=== PATIENT | male | born 1955 | race Caucasian/White ===

== ENCOUNTER 2022-02-02 17:49 | Inpatient (IN) | payer MEDICARE, MEDICAID ==
[~2022-02-02] VITALS: Ht 152.4 cm; Wt 40.4 kg
--- NOTE | 2022-02-02 18:46 | NUR ---
aj Chapa md aware
[2022-02-02] MEDS ORDERED: IV NS 0.9% 1,000 ML BAG IV ONE (19:00)
--- NOTE | 2022-02-02 19:00 | NUR ---
IV LINE ON LAC #20, BLOOD DRAWN AND COLLECTED.
--- NOTE | 2022-02-02 19:09 | NUR ---
URINE COLLECTED AND SENT TO LAB
[2022-02-02 19:52] LABS: ALANINE AMINOTRANSFERASE 138 U/L (12-78); ALBUMIN 3.4 g/dL (3.4-5.0); ALKALINE PHOSPHATASE 117 U/L (46-116); ASPARTATE AMINOTRANSFERASE 95 U/L (15-37); BILIRUBIN,DIRECT 0.1 mg/dL (0.0-0.2); BILIRUBIN,TOTAL 0.2 mg/dL (0.2-1.0); CALCIUM, SERUM 10.3 mg/dL (8.5-10.1); CARBON DIOXIDE 30 mmol/L (21-32); CHLORIDE 97 mmol/L (98-107); CREATININE 0.7 mg/dL (0.6-1.3); POTASSIUM 4.5 mmol/L (3.5-5.1); SODIUM SERUM 129 mmol/L (136-145); TOTAL PROTEIN, SERUM 6.3 g/dL (6.4-8.2); UREA NITROGEN, BLOOD 19 mg/dL (7-18)
[2022-02-02 19:57] LABS: GLUCOSE 384 mg/dL (74-106)
[2022-02-02 20:04] LABS: BASOPHILS % (AUTO) 0.4 % (0.0-2.0); EOSINOPHILS % (AUTO) 2.2 % (0.0-6.0); HEMATOCRIT 35 % (39-51); HEMOGLOBIN 12.4 g/dL (13.5-17.5); LYMPHOCYTES # (AUTO) 1.2 K/uL (0.8-4.8); MEAN CORPUSCULAR HGB CONC 35 g/dl (31.0-36.0); MEAN CORPUSCULAR VOLUME 102 fL (80-96); MONOCYTES # (AUTO) 0.5 K/uL (0.1-1.30); MONOCYTES % (AUTO) 8.9 % (2.0-12.0); NEUTROPHILS # (AUTO) 3.5 K/uL (1.8-8.9); NEUTROPHILS % (AUTO) 66.5 % (43.0-81.0); PLATELET COUNT (AUTO) 249 K/uL (150-450); RED BLOOD CELL COUNT(AUTO) 3.43 MIL/uL (4.5-6.0); WHITE BLOOD COUNT (AUTO) 5.3 K/uL (4.3-11.0)
[2022-02-02 20:05] LABS: BILIRUBIN,URINE NEGATIVE (NEGATIVE); COLOR,URINE YELLOW (YELLOW); LEUKOCYTE ESTERASE ,URINE NEGATIVE (NEGATIVE); NITRITE, URINE NEGATIVE (NEGATIVE); PROTEIN,URINE NEGATIVE (NEGATIVE); UGLUCOSE 3+ mg/dL (NEGATIVE); UROBILINOGEN,URINE 0.2 EU/dL (0.2)
--- NOTE | 2022-02-02 20:10 | NUR ---
COVID ANTIGEN SWAB COLLECTED AND SENT TO LAB
[2022-02-02 20:29] LABS: BACTERIA,URINE Few /HPF (None Seen); RED BLOOD CELL CASTS,URINE Few /LPF (None Seen)
[2022-02-02] MEDS ORDERED: INSULIN REGULAR, HUMAN 100 UNIT/ML 10 ML VIAL SQ ONE (20:30)
[2022-02-02] MEDS ORDERED: INSULIN REGULAR, HUMAN 100 UNIT/ML 10 ML VIAL ONE (20:36)
--- NOTE | 2022-02-02 20:49 | NUR ---
GUN PERFORATOR AT PT'S BEDSIDE
[2022-02-02 21:15] LABS: LIPASE 206 U/L (73-393)
--- NOTE | 2022-02-02 21:35 | NUR ---
OFFERED PT FOOD; TOLERATED WELL
[2022-02-02] MEDS ORDERED: DEXTROSE 50%-WATER 50 ML DISP.SYRIN IV PRN (22:30)
[2022-02-03] MEDS ORDERED: ACETAMINOPHEN 325 MG TABLET PO PRN (01:00)
[2022-02-03] MEDS: ENOXAPARIN SODIUM 40 MG/0.4 ML DISP.SYRIN SQ SCH ×2 (01:00→21:29)
[2022-02-03] MEDS ORDERED: ONDANSETRON HCL/PF 4 MG/2 ML VIAL IVP PRN (01:00)
--- NOTE | 2022-02-03 01:00 | NUR ---
SALES CONSULTING DIRECTORPHYSICAL THERAPY INSTRUCTOR NOTE PT TRANSPORTED VIA GURNEY TO UNIT AT THIS TIME. PT FROM [facility] ADMITTED TO TELE FROM ER UNDER DRUM PRINTER JAZMÍN FOR ADMITTING DX HYPERGLYCEMIA. A/O X2 AND ABLE TO MAKE NEEDS KNOWN. PT STABLE ON ROOM AIR. NO SOB OR S/S OF RESPIRATORY DISTRESS. BREATHING EVEN AND UNLABORED. ON EXTERNAL AN/SSN 2 4 OPERATOR READING SR 61 BPM. NO COMPLAINTS OF PAIN OR DISCOMFORT AT THIS TIME. SKIN IS INTACT. IV ACCESS LAC 20G, INTACT AND PATENT. ORIENTED TO UNIT, STAFF, AND ROOM. PT BELONGINGS ACCOUNTED FOR AND BELONGINGS LIST SIGNED. SAFETY PRECAUTIONS IN PLACE. BED IN LOWEST LOCKED POSITION, HOB ELEVATED, SIDE RAILS UP X3, AND CALL LIGHT AND TABLE WITHIN REACH. ALL NEEDS MET AT THIS TIME.
[2022-02-03 01:15] VITALS: BP 106/59
--- NOTE | 2022-02-03 01:26 | NUR ---
JAZMÍN AT PT'S BEDSIDE FOR EVAL
[2022-02-03] MEDS: IV NS 0.9% 1,000 ML IV PRN ×2 (01:31→15:07)
--- NOTE | 2022-02-03 01:41 | NUR ---
REPORT GIVEN TO TOBI Brannon RN FOR MARIE
--- NOTE | 2022-02-03 01:56 | NUR ---
PT TRANSFERRING TO 3 VIA HOSPITAL PROTOCOL. VSS.
[2022-02-03 04:00] VITALS: BP 104/49
[2022-02-03] MEDS: BLOOD SUGAR DIAGNOSTIC 1 EACH STRIP VI SCH ×4 (06:30→22:00)
[2022-02-03] MEDS: INSULIN REGULAR, HUMAN 100 UNIT/ML 3 ML VIAL SQ PRN ×2 (06:32→13:11)
--- NOTE | 2022-02-03 06:53 | NUR ---
COLLECTION ADVISOR CLOSING NOTE PT AWAKE IN BED. A/O X2 AND ABLE TO MAKE NEEDS KNOWN. PT STABLE ON ROOM AIR. NO SOB OR S/S OF RESPIRATORY DISTRESS. BREATHING EVEN AND UNLABORED. ON EXTERNAL CARBIDE POWDER PROCESSOR READING SR 61 BPM. NO COMPLAINTS OF PAIN OR DISCOMFORT AT THIS TIME. IV ACCESS LAC 20G, INTACT AND PATENT, RUNNING NS @ 75 ML/HR. PT REFUSED INSULIN THIS MORNING SINCE BLOOD SUGAR WAS 131. EXPLAINED IMPORTANCE OF MEDICATION COMPLIANCE, PT VERBALIZED UNDERSTANDING BUT STILL REFUSED. SAFETY PRECAUTIONS IN PLACE AT ALL TIMES. BED IN LOWEST LOCKED POSITION, HOB ELEVATED, SIDE RAILS UP X3, AND CALL LIGHT AND TABLE WITHIN REACH. ALL NEEDS MET AT THIS TIME AND WILL ENDORSE TO ONCOMING NURSE FOR MARIE.
--- NOTE | 2022-02-03 07:00 | NUR ---
PSYCHIATRIST OPENING NOTES PATIENT LAYING IN BED, A/O X 2, ABLE TO MAKE NEEDS KNOWN. TOLERATING WELL ON ROOM AIR WITH NO S/S RESPIRATORY DISTRESS. NO COMPLAINTS OF PAIN OR DISCOMFORT AT THIS TIME. TELE MONITOR IN PLACE READING NSR 78. L AC # 20 G IV CLEAN, INTACT, AND INFUSING NS @ 75 ML/HR. SAFETY MEASURES IN PLACE: BED IN LOWEST LOCKED POSITION, SIDE RAILS UP X 2, CALL LIGHT WITHIN REACH. WILL CONTINUE TO MONITOR.
[2022-02-03 08:00] VITALS: BP 139/87
[2022-02-03] MEDS: METFORMIN 500 MG TABLET PO SCH ×2 (10:33→17:00)
[2022-02-03 12:00] VITALS: BP 99/80
--- NOTE | 2022-02-03 13:17 | NUR ---
PARTS PRODUCT ANALYST NOTES PATIENT NOTED WITH BLOOD GLUCOSE 428 (PATIENT HAD EATEN), NO S/S HYPERGLYCEMIA NOTED, MD MADE AWARE, 15 UNITS INSULIN SLIDING SCALE ADMINISTERED ORDERED.
[2022-02-03 16:00] VITALS: BP 142/78
[2022-02-03 16:34] LABS: BASOPHILS % (AUTO) 0.6 % (0.0-2.0); EOSINOPHILS % (AUTO) 1.7 % (0.0-6.0); HEMATOCRIT 39 % (39-51); LYMPHOCYTES # (AUTO) 1.5 K/uL (0.8-4.8); LYMPHOCYTES % (AUTO) 20.8 % (20.0-44.0); MEAN CORPUSCULAR HGB CONC 33 g/dl (31.0-36.0); MEAN CORPUSCULAR VOLUME 96 fL (80-96); MONOCYTES # (AUTO) 0.6 K/uL (0.1-1.30); MONOCYTES % (AUTO) 8.1 % (2.0-12.0); NEUTROPHILS # (AUTO) 4.9 K/uL (1.8-8.9); NEUTROPHILS % (AUTO) 68.8 % (43.0-81.0); PLATELET COUNT (AUTO) 293 K/uL (150-450); RED BLOOD CELL COUNT(AUTO) 4.03 MIL/uL (4.5-6.0); WHITE BLOOD COUNT (AUTO) 7.1 K/uL (4.3-11.0)
--- NOTE | 2022-02-03 16:44 | NUR ---
SLUBBER MACHINE OPERATOR NOTES PATIENT ACCUCHECK 52, PATIENT GIVEN 8 OZ ORANGE JUICE PER PROTOCOL. MD MADE AWARE.
[2022-02-03 16:48] LABS: ALBUMIN 3.4 g/dL (3.4-5.0); BILIRUBIN,DIRECT 0.1 mg/dL (0.0-0.2); BILIRUBIN,TOTAL 0.3 mg/dL (0.2-1.0); CALCIUM, SERUM 10.4 mg/dL (8.5-10.1); CREATININE 0.8 mg/dL (0.6-1.3); MAGNESIUM 1.6 mg/dL (1.8-2.4); PHOSPHORUS 1.5 mg/dL (2.5-4.9); POTASSIUM 3.9 mmol/L (3.5-5.1); TOTAL PROTEIN, SERUM 6.5 g/dL (6.4-8.2)
--- NOTE | 2022-02-03 17:21 | NUR ---
MEDICAL RECORDS SPECIALIST NOTES PATIENT AGITATED, REFUSING MEDICATION AND TELE MONITORING AT THIS TIME
--- NOTE | 2022-02-03 19:00 | NUR ---
SONG WRITER CLOSING NOTES PATIENT LAYING IN BED, A/O X 2, ABLE TO MAKE NEEDS KNOWN. TOLERATING WELL ON ROOM AIR WITH NO S/S RESPIRATORY DISTRESS. NO COMPLAINTS OF PAIN OR DISCOMFORT AT THIS TIME. PATIENT REFUSING TELE MONITORING AT THIS TIME. L AC # 20 G IV CLEAN, INTACT, AND INFUSING NS @ 75 ML/HR. SAFETY MEASURES IN PLACE: BED IN LOWEST LOCKED POSITION, SIDE RAILS UP X 2, CALL LIGHT WITHIN REACH. ALL NEEDS MET. WILL ENDORSE TO ENGRAVER SEALS FOR MARIE.
[2022-02-03 20:00] VITALS: BP 153/82
--- NOTE | 2022-02-03 21:53 | NUR ---
QUALITY ASSURANCE ASSISTANT OPENING NOTES RECEIVED PATIENT LYING AWAKE IN BED, A/O X 2, ABLE TO MAKE NEEDS KNOWN. TOLERATING WELL ON ROOM AIR WITH NO S/S RESPIRATORY DISTRESS. NO COMPLAINTS OF PAIN OR DISCOMFORT AT THIS TIME. PATIENT REFUSING TELE MONITORING AND VITAL SIGNS TAKING AT THIS TIME. L AC # 20 G IV CLEAN, INTACT, AND INFUSING NS @ 75 ML/HR. SAFETY MEASURES IN PLACE: BED IN LOWEST LOCKED POSITION, SIDE RAILS UP X 2, CALL LIGHT WITHIN REACH. WILL CONTINUE TO MONITOR THROUGHOUT THE SHIFT.
--- NOTE | 2022-02-03 22:30 | NUR ---
PATIENT REFUSED BLOOD GLUCOSE MONITORING THIS TIME.
--- NOTE | 2022-02-03 23:14 | NUR ---
RN NOTE BLOOD SUGAR: 263mg/dl. With insulin coverage, 6 units sliding scale. Patient refused insulin admin. Reinforced need for insulin to lower blood sugar level. Patient insisted (shouting) to be given tomorrow morning.
[2022-02-04] MEDS: BENZONATATE 100 MG CAPSULE PO PRN ×4 (02:46→22:40)
--- NOTE | 2022-02-04 02:48 | NUR ---
PATIENT COMPLAINED OF NON PRODUCTIVE COUGH. VERBALIZED DIFFICULTY BREATHING. UNCOMFORTABLE DUE TO COUGH. INFORMED DR. NOYOLA AND ORDERED TESSALON 100MG FOR COUGH. WILL MONITOR PATIENT THROUGHOUT.
[2022-02-04] MEDS: POLYVINYL ALCOHOL 15 ML BOTTLE EACHEYE PRN ×3 (05:24→16:04)
--- NOTE | 2022-02-04 06:52 | NUR ---
LEATHER REPAIRER CLOSING NOTES PATIENT LYING AWAKE IN BED, A/O X 2, ABLE TO MAKE NEEDS KNOWN. TOLERATING WELL ON ROOM AIR WITH NO S/S RESPIRATORY DISTRESS. NO COMPLAINTS OF PAIN OR DISCOMFORT AT THIS TIME. PATIENT REFUSING TELE MONITORING AT THIS TIME. IV ACCESS AT L AC # 20 G IV CLEAN, INTACT, AND INFUSING NS @ 75 ML/HR. SAFETY MEASURES IN PLACE: BED IN LOWEST LOCKED POSITION, SIDE RAILS UP X 2, CALL LIGHT WITHIN REACH. ALL NEEDS MET. WILL ENDORSE TO DAY SHIFT RN FOR MARIE.
[2022-02-04] MEDS: BLOOD SUGAR DIAGNOSTIC 1 EACH STRIP VI SCH ×4 (06:58→21:58)
[2022-02-04] MEDS: INSULIN REGULAR, HUMAN 100 UNIT/ML 3 ML VIAL SQ PRN ×3 (06:59→16:56)
--- NOTE | 2022-02-04 07:20 | NUR ---
CONTINUOUS PROCESS COFFEE ROASTER OPENING NOTES RECEIVED PATIENT LYING AWAKE IN BED, A/O X 2, ABLE TO MAKE NEEDS KNOWN. TOLERATING WELL ON ROOM AIR .NO S/S RESPIRATORY DISTRESS NOTED. NO COMPLAINTS OF PAIN OR DISCOMFORT AT THIS TIME. PATIENT REFUSING TELE MONITORING AT THIS TIME. EDUCATE THE PATIENT ABOUT THE IMPORTANCE OF THE HYDROTECHNICAL SPECIALIST BUT STILL REFUSING. L AC # 20 G IV, INTACT, AND INFUSING NS @ 75 ML/HR. ALL SAFETY MEASURES IN PLACE: BED IN LOWEST LOCKED POSITION, SIDE RAILS UP X 2, CALL LIGHT AND TABLE WITHIN REACH. WILL CONTINUE TO MONITOR CLOSELY.
[2022-02-04 08:00] VITALS: BP 129/87
[2022-02-04] MEDS: METFORMIN 500 MG TABLET PO SCH ×2 (08:04→16:10)
[2022-02-04] MEDS ORDERED: METF-440 PO (08:45)
[2022-02-04] MEDS ORDERED: EMPA25TA PO ×2 (08:45→09:56)
[2022-02-04] MEDS ORDERED: *INS REG SQ (08:45)
[2022-02-04] MEDS: INSULIN GLARGINE, 100 UNIT/ML CARTRIDGE SQ SCH ×2 (09:00→17:00)
[2022-02-04] MEDS ORDERED: INSU100V3 SQ (09:56)
[2022-02-04] MEDS ORDERED: METO25TA4 PO (09:56)
[2022-02-04] MEDS ORDERED: MUPI22OI7 TP (09:56)
[2022-02-04] MEDS ORDERED: METF-442 PO (09:56)
[2022-02-04] MEDS ORDERED: AMLO-212 PO (09:56)
[2022-02-04] MEDS ORDERED: LISI20TA30 PO (09:56)
[2022-02-04] MEDS ORDERED: APIX2.5T PO (09:56)
[2022-02-04] MEDS ORDERED: OXCA600T8 PO (09:56)
[2022-02-04] MEDS ORDERED: SENN-261 PO (09:56)
[2022-02-04] MEDS ORDERED: HALO10TA13 PO (09:56)
[2022-02-04] MEDS ORDERED: TAMS-12 PO (09:56)
[2022-02-04] MEDS ORDERED: INSU100V7 SQ (09:56)
[2022-02-04] MEDS ORDERED: PANT40TA49 PO (09:56)
[2022-02-04] MEDS ORDERED: TOBR5DRO48 EACHEYE (09:56)
[2022-02-04] MEDS ORDERED: MEMA10TA56 PO (09:56)
[2022-02-04] MEDS ORDERED: HALO100A3 IM (09:56)
--- NOTE | 2022-02-04 10:16 | NUR ---
RN NOTES PATIENT REFUSED INSULIN LANTUS FOR 0900 AM. EDUCATE AND EXPLAINED THE BENEFITS OF THE MEDICATION, BUT PATIENT STRONGLY REFUSED THAT.
[2022-02-04 12:00] VITALS: BP 147/68
--- NOTE | 2022-02-04 15:49 | NUR ---
RN NOTES IV SITE NOTED SWOLLEN AND PAINFUL PER PATIENT'S COMPLAIN. REMOVED THE IV SITE ON THE LAC G# 20. PATIENT REFUSING REINSERTION OF IV AND HYDRATION. EXPLAINED THE BENEFITS AND EDUCATE THE BENEFITS, STILL REFUSING.
[2022-02-04] MEDS: OXCARBAZEPINE 150 MG TABLET PO SCH (16:10)
[2022-02-04] MEDS: HALOPERIDOL 5 MG TABLET PO SCH (16:10)
[2022-02-04 16:50] VITALS: BP 121/61
--- NOTE | 2022-02-04 17:25 | NUR ---
RN NOTES PATIENT IS REFUSING LANTUS FOR 1700. OFFERED AND EDUCATE THE PATIENT ABOUT THE BENEFITS AND USE OF MEDICATION FOR BLOOD SUGAR CONTROL, BUT STILL REFUSING. RESPECTED PATIENT RIGHTS.
[2022-02-04] MEDS: GLUCERNA SHAKE 237 ML CAN PO SCH (17:39)
--- NOTE | 2022-02-04 19:49 | NUR ---
RN OPENING NOTES RECEIVED PT IN BED, ASLEEP, AWAKENS TO VERBAL STIMULI. AOx2. ON RA AND TOLERATING WELL. NO SOB NOTED. NO S/SX OF RESPIRATORY DISTRESS NOTED. IV ACCESS NOT PRESENT AND PT IS REFUSING REINSERTION. REFUSING TELE MONITOR. SAFETY PRECAUTIONS IN PLACE: BD IN LOWEST, LOCKED POSITION, SIDERAILS UPx2, AND BRAKES ON. TABLE AND CALL LIGHT WITHIN REACH. ALL NEEDS MET AT THIS TIME.
--- NOTE | 2022-02-04 19:53 | NUR ---
RN CLOSING NOTES PATIENT LYING AWAKE IN BED, A/O X 2, ABLE TO MAKE NEEDS KNOWN. TOLERATING WELL ON ROOM AIR .NO S/S RESPIRATORY DISTRESS NOTED. NO COMPLAINTS OF PAIN OR DISCOMFORT AT THIS TIME. PATIENT REFUSING TELE MONITORING AT THIS TIME. EDUCATE THE PATIENT ABOUT THE IMPORTANCE OF THE DRAFTER ASSISTANT BUT STILL REFUSING.NO IV SITE. PATIENT REFUSED 8IV SITE AND HYDRATION. DUE MEDS GIVEN ORDERED. ALL SAFETY MEASURES IN PLACE: BED IN LOWEST LOCKED POSITION, SIDE RAILS UP X 2, CALL LIGHT AND TABLE WITHIN REACH. WILL ENDORSE FOR MARIE..
[2022-02-04 20:00] VITALS: BP 127/66
[2022-02-04] MEDS: ENOXAPARIN SODIUM 40 MG/0.4 ML DISP.SYRIN SQ SCH (21:00)
[2022-02-04] MEDS: *INSULIN REGULAR(HUMULIN R)HUM 100 UNIT/ML VIAL SQ PRN ×2 (21:58→22:44)
--- NOTE | 2022-02-04 22:40 | NUR ---
RN NOTES ADMINISTERED TESSALON PERLES FOR COUGH.
[2022-02-05] MEDS: POLYVINYL ALCOHOL 15 ML BOTTLE EACHEYE PRN (05:44)
[2022-02-05] MEDS: BLOOD SUGAR DIAGNOSTIC 1 EACH STRIP VI SCH ×4 (06:34→21:14)
[2022-02-05] MEDS: INSULIN REGULAR, HUMAN 100 UNIT/ML 3 ML VIAL SQ PRN (06:35)
--- NOTE | 2022-02-05 06:53 | NUR ---
RN CLOSING NOTES PT IN BED, AWAKE, WATCHING TV. AOx2. ON RA AND TOLERATING WELL. NO SOB NOTED. NO S/SX OF RESPIRATORY DISTRESS NOTED. IV ACCESS NOT PRESENT AND PT IS REFUSING REINSERTION. REFUSING TELE MONITOR. ALL ORDERS CARRIED OUT. ALL NEEDS MET. PT KEPT CLEAN AND DRY. SAFETY PRECAUTIONS IN PLACE: BD IN LOWEST, LOCKED POSITION, SIDERAILS UPx2, AND BRAKES ON. TABLE AND CALL LIGHT WITHIN REACH. WILL ENDORSE TO ONCOMING SHIFT FOR MARIE.
[2022-02-05 07:00] VITALS: BP 119/59
--- NOTE | 2022-02-05 07:15 | NUR ---
RN OPEN NOTE RECEIVED PT IN BED, ASLEEP, AWAKENS TO VERBAL STIMULI. AOx2. ON RA AND TOLERATING WELL. NO SOB NOTED. NO S/SX OF RESPIRATORY DISTRESS NOTED. IV ACCESS NOT PRESENT AND PT IS REFUSING REINSERTION. REFUSING TELE MONITOR. SAFETY PRECAUTIONS IN PLACE: BD IN LOWEST, LOCKED POSITION, SIDERAILS UPx2, AND BRAKES ON. TABLE AND CALL LIGHT WITHIN REACH.WILL CO NTINUE TO MONITOR AND FALLOW POC
[2022-02-05] MEDS: GLUCERNA SHAKE 237 ML CAN PO SCH (08:00)
[2022-02-05] MEDS: HALOPERIDOL 5 MG TABLET PO SCH ×2 (08:07→16:55)
[2022-02-05] MEDS: METFORMIN 500 MG TABLET PO SCH ×2 (08:08→16:55)
[2022-02-05] MEDS: OXCARBAZEPINE 150 MG TABLET PO SCH ×2 (08:08→16:55)
[2022-02-05] MEDS: INSULIN GLARGINE, 100 UNIT/ML CARTRIDGE SQ SCH ×2 (08:12→16:56)
--- NOTE | 2022-02-05 11:40 | NUR ---
RN NOTE PATIENT RBS AT 1140 WAS 129 , ACCORDING TO SLIDING SCALE 2 UNITS OF REGULAR INSULIN SHOULD BE ADMINISTERED , BUT PATIENT IS REFUSED
[2022-02-05 11:50] LABS: BASOPHILS % (AUTO) 0.5 % (0.0-2.0); EOSINOPHILS % (AUTO) 1.8 % (0.0-6.0); HEMATOCRIT 37 % (39-51); HEMOGLOBIN 12.3 g/dL (13.5-17.5); LYMPHOCYTES # (AUTO) 1.3 K/uL (0.8-4.8); LYMPHOCYTES % (AUTO) 17.3 % (20.0-44.0); MEAN CORPUSCULAR HGB CONC 34 g/dl (31.0-36.0); MEAN CORPUSCULAR VOLUME 96 fL (80-96); MONOCYTES # (AUTO) 0.7 K/uL (0.1-1.30); MONOCYTES % (AUTO) 9.3 % (2.0-12.0); NEUTROPHILS # (AUTO) 5.1 K/uL (1.8-8.9); NEUTROPHILS % (AUTO) 71.1 % (43.0-81.0); PLATELET COUNT (AUTO) 293 K/uL (150-450); RED BLOOD CELL COUNT(AUTO) 3.83 MIL/uL (4.5-6.0); WHITE BLOOD COUNT (AUTO) 7.2 K/uL (4.3-11.0)
[2022-02-05 12:07] LABS: CALCIUM, SERUM 10.4 mg/dL (8.5-10.1); CREATININE 0.5 mg/dL (0.6-1.3); MAGNESIUM 1.4 mg/dL (1.8-2.4)
--- NOTE | 2022-02-05 12:14 | NUR ---
SW Consult: SW consult was notified and social work specialist will assess pt.
[2022-02-05] MEDS ORDERED: OXCA150T13 PO (13:17)
[2022-02-05] MEDS ORDERED: HALO5TAB8 PO (13:17)
--- NOTE | 2022-02-05 13:45 | NUR ---
SW Consult: SW consult was requested to evaluate this pt. SW met with patient. Patient appeared to be alert and oriented x2 (self,place). Pt appeared labile and hyperverbal. He did appear to be disorganized and somewhat confused. Pt stated that his sister Sarah ([phone]) is the conservator and payee. His speech appeared to be unclear. Pt was unable to appropriately focus. Pt was unable to maintain appropriate eye contact. Pt denies suicidal or homicidal ideation. Pt denies visual/auditory hallucinations. Pt stated that he was residing at Assisted Living located at [address] [place] [address]; ([phone]). SW contacted admissions and spoke with Yessy who stated she would have to confirm with distribution district supervisor if pt is welcomed back. REBA will follow up and REBA gave case aide Zoe this information. SW attempted to contact pt's sister Sarah ([phone]) per records indicating that pt is the conservator but no documents in the chart. Plan: Pt will either return back to Assisted Living located at [address] [place] [address]; ([phone]) or pt will require a nursing facility. REBA notified case management.
--- NOTE | 2022-02-05 15:20 | NUR ---
REBA Family Contact: REBA spoke with pt's sister Sarah ([phone]) who stated that she is the person and real estate loan officer. She stated that she has the documents of last year and it has . She stated that she renewed it this year and the documents are still pending. She did stated that when pt is stable she would want him to return back to his assisted living [address] [place] [id number]; ([phone]). She would want pt's medications to be re-evaluated and adjusted before he goes to the assisted living.
[2022-02-05] MEDS: *INSULIN REGULAR(HUMULIN R)HUM 100 UNIT/ML VIAL SQ PRN ×2 (17:09→21:14)
--- NOTE | 2022-02-05 19:04 | NUR ---
RN CLOSING NOTE PT IN BED, AWAKE, AOx2.AGITATED ON RA AND TOLERATING WELL. NO SOB NOTED. NO S/SX OF RESPIRATORY DISTRESS NOTED. IV ACCESS NOT PRESENT AND PT IS REFUSING REINSERTION. REFUSING TELE MONITOR. ALL ORDERS CARRIED OUT. ALL NEEDS MET. PT KEPT CLEAN AND DRY. SAFETY PRECAUTIONS IN PLACE: BD IN LOWEST, LOCKED POSITION, SIDERAILS UPx2, AND BRAKES ON. TABLE AND CALL LIGHT WITHIN REACH. ORDER RECEIVED TO DISCHARGE PATIENT FROM [facility] , UNDERWATER HUNTER LOOKING FOR THE ROOM , DUE TO PATIENT IS AGGITATED WILL BE TRANSFERED TO THE GPS WITH SUPERVISION OF THE DR VOSS .
--- NOTE | 2022-02-05 19:46 | NUR ---
RN OPENING NOTES RECEIVED PT SITTING UPRIGHT IN BED, AWAKE. AOx2. ON RA AND TOLERATING WELL. NO SOB NOTED. NO S/SX OF RESPIRATORY DISTRESS NOTED. IV ACCESS NOT PRESENT AND PT IS REFUSING REINSERTION. PENDING DISCHARGE TO GPS UNIT. SAFETY PRECAUTIONS IN PLACE: BD IN LOWEST, LOCKED POSITION, SIDERAILS UPx2, AND BRAKES ON. TABLE AND CALL LIGHT WITHIN REACH. ALL NEEDS MET AT THIS TIME.
[2022-02-05 20:40] VITALS: BP 134/69
[2022-02-05] MEDS: BENZONATATE 100 MG CAPSULE PO PRN (20:53)
[2022-02-05] MEDS: ENOXAPARIN SODIUM 40 MG/0.4 ML DISP.SYRIN SQ SCH (21:08)
--- NOTE | 2022-02-05 21:20 | NUR ---
DISCHARGE NOTES PATIENT DISCHARGED. REMOVED ARMBAND AND IV. PAPERWORK PROVIDED. EDUCATION PROVIDED. REPORT GIVEN TO MICHELLE RN, IN [facility]. IN PAPERWORK, SAID PATIENT WAS GOING TO SNF BUT PATIENT WAS TRANSFERRED TO [facility]. ALL BELONGINGS ACCOUNTED FOR.
[2022-02-05] MEDS ORDERED: NUT.237L45 PO (23:00)
[2022-02-05] MEDS ORDERED: POLY15DR40 EACHEYE (23:00)
[2022-02-05] MEDS ORDERED: INSU100V7 SQ (23:00)
[2022-02-05] MEDS ORDERED: HALO5TAB PO (23:00)
[2022-02-05] MEDS ORDERED: METF-442 PO (23:00)
[2022-02-05] MEDS ORDERED: *INS REG3 SQ (23:00)
[2022-02-05] MEDS ORDERED: BENZ-38 PO (23:00)
[2022-02-05] MEDS ORDERED: OXCA300T15 PO (23:00)
[2022-02-05] MEDS ORDERED: BLOO-668 (23:00)
[2022-02-05] MEDS ORDERED: ENOX40DI SQ (23:00)
== END 2022-02-05 21:20 | DRG 640 ==
LOC: ER 17:56 → TELE 02-03 01:31 → MED 02-05 10:43
PROVIDERS: ADMIT Nurse Practitioner Acute Care; ATTEND Registered Nurse
DX: E87.1 Hypo-osmolality and hyponatremia (principal); E43 Unspecified severe protein-calorie malnutrition; E86.1 Hypovolemia; E11.65 Type 2 diabetes mellitus with hyperglycemia; D53.1 Other megaloblastic anemias, not elsewhere classified; E86.0 Dehydration; E83.52 Hypercalcemia; F29 Unspecified psychosis not due to a substance or known physiological condition; I11.0 Hypertensive heart disease with heart failure; I50.9 Heart failure, unspecified; R74.01 Elevation of levels of liver transaminase levels; K76.1 Chronic passive congestion of liver; Z91.14 Patient's other noncompliance with medication regimen; Z91.199 Patient's noncompliance with other medical treatment and regimen due to unspecified reason; F03.90 Unspecified dementia, unspecified severity, without behavioral disturbance, psychotic disturbance, mood disturbance, and anxiety; F25.9 Schizoaffective disorder, unspecified
CPT/HCPCS: 36415; 71045-TC; 80048-TC; 80061-TC; 80076-TC; 81001; 82962-TC; 83690-TC; 83735-TC; 83880; 84100-TC; 84484-TC; 85025-TC; 87081-TC; C9803; G0378; J1650; J1815; J7030; J7070; J7120

== ENCOUNTER 2022-02-05 20:38 | Inpatient (IN) | payer MEDICARE, MEDICAID ==
[~2022-02-05] VITALS: Ht 152.4 cm; Wt 40.4 kg
[~2022-02-05 20:38] MED LIST: *INS REG SQ; AMLO-212 PO; APIX2.5T PO; EMPA25TA PO; HALO100A3 IM; HALO10TA13 PO; HALO5TAB8 PO; INSU100V3 SQ; INSU100V7 SQ; LISI20TA30 PO; MEMA10TA56 PO; METF-440 PO; METF-442 PO; METO25TA4 PO; MUPI22OI7 TP; OXCA150T13 PO; OXCA600T8 PO; PANT40TA49 PO; SENN-261 PO; TAMS-12 PO; TOBR5DRO48 EACHEYE
[2022-02-05 21:15] VITALS: BP 146/67
--- NOTE | 2022-02-05 21:15 | NUR ---
RN NOTE: ADMITTED A 66-Y/O, MALE, FROM [facility] INITIALLY PT CAME FROM [facility]. ADMITTED ON A 5150 HOLD FOR DTO. PER HOLD, PATIENT ADMITTED DUE TO INCREASED AGGRESSIVE BEHAVIOR TOWARDS STAFF. PATIENT IS EASILY AGITATED/ANGERED. PATIENT MAKING VERBAL THREATS. UPON FACE TO FACE EVALUATION, PATIENT IS ALERT AND ORIENTED X2, ANXIOUS, AGGRESSIVE TOWARDS STAFF AND EASILY AGITATED. SKIN ASSESSMENT DONE, SKIN IS INTACT. REFUSED TO SIGN ADMISSION PAPERWORK AND PT ALSO REFUSED TO COMMENT ABOUT FLU VACCINATION AND REFUSING TO GET ONE. NO BELONGINGS UPON ADMISSION. PATIENT'S RIGHTS WERE DISCUSSED AND BOOKLET WAS GIVEN. CONTACTED DR. VOSS AND HOSPITALIST BRIAN TAMEZ AND INFORMED THEM OF THE ADMISSION. BED IN LOWEST POSITION, LOCKED. SAFETY PRECAUTIONS MAINTAINED. WILL CONTINUE TO MONITOR Q15 MINS FOR MOOD, SAFETY AND BEHAVIOR. PATIENT'S DAUGHTER NOTIFIED OF PT'S ADMISSION.
[2022-02-05] MEDS ORDERED: BLOOD SUGAR DIAGNOSTIC 1 EACH STRIP IN ONE (22:00)
[2022-02-05] MEDS ORDERED: MAG HYDROX/AL HYDROX/SIMETH 30 ML UDC PO PRN (22:00)
[2022-02-05] MEDS ORDERED: BLOO-668 (23:00)
[2022-02-05] MEDS ORDERED: ENOX40DI SQ (23:00)
[2022-02-05] MEDS ORDERED: *INS REG3 SQ (23:00)
[2022-02-05] MEDS ORDERED: INSU100V7 SQ (23:00)
[2022-02-05] MEDS ORDERED: HALO5TAB PO (23:00)
[2022-02-05] MEDS ORDERED: POLY15DR40 EACHEYE (23:00)
[2022-02-05] MEDS ORDERED: NUT.237L45 PO (23:00)
[2022-02-05] MEDS ORDERED: METF-442 PO (23:00)
[2022-02-05] MEDS ORDERED: OXCA300T15 PO (23:00)
[2022-02-05] MEDS ORDERED: BENZ-38 PO (23:00)
[2022-02-05] MEDS: TEMAZEPAM 15 MG CAPSULE PO PRN (23:46)
[2022-02-06] MEDS ORDERED: *INSULIN REGULAR(HUMULIN R)HUM 100 UNIT/ML VIAL SQ PRN (07:30)
[2022-02-06] MEDS ORDERED: DEXTROSE 50%-WATER 50 ML DISP.SYRIN IV PRN ×2 (07:30→18:30)
[2022-02-06 07:43] LABS: CREATININE 0.6 mg/dL (0.6-1.3)
[2022-02-06 07:50] LABS: CHOLESTEROL 97 mg/dL (<200); HDL CHOLESTEROL 65 mg/dL (40-60); LDL 23 mg/dL (0-99); TRIGLYCERIDES 89 mg/dL (30-150)
[2022-02-06 08:00] VITALS: BP 145/74
[2022-02-06] MEDS: BLOOD SUGAR DIAGNOSTIC 1 EACH STRIP VI SCH ×3 (08:09→17:21)
[2022-02-06] MEDS ORDERED: HALOPERIDOL 1 MG TABLET PO SCH (09:00)
[2022-02-06] MEDS ORDERED: DIVALPROEX SODIUM 125 MG TABLET.DR PO SCH (09:00)
[2022-02-06] MEDS: METOPROLOL SUCCINATE 25 MG TAB.SR.24H PO SCH (09:50)
[2022-02-06] MEDS: INSULIN REGULAR, HUMAN 100 UNIT/ML 3 ML VIAL SQ PRN ×2 (09:54→16:46)
[2022-02-06] MEDS: BLOOD SUGAR DIAGNOSTIC 1 EACH STRIP MC SCH ×2 (11:58→17:20)
--- NOTE | 2022-02-06 14:01 | NUR ---
REBA Initial Discharge Plan: Patient currently resides at assisted living located at [address] [place] [address]; ([phone]). REBA spoke with Yessy phelan who stated she would have to confirm with her covering and lining supervisor if pt is welcomed back. REBA will work with the MD, family, and treatment team.
--- NOTE | 2022-02-06 14:01 | NUR ---
REBA Family Contact: REBA contacted pt's sister Sarah ([phone]) and gathered collateral. She did sent pt documents of DPOA and probate conservator. SW placed in the chart. Sister stated that she would want pt back to the assisted living.
--- NOTE | 2022-02-06 14:07 | NUR ---
Facility Contact: REBA contacted pt's assisted living and spoke with Mari admin ([phone]) who stated that they would want to go to a nursing facility called [facility] ([phone]) who is holding pt's bed. REBA will notify sister Sarah this information.
--- NOTE | 2022-02-06 14:08 | NUR ---
REBA Clinical Note: Pt placed on a 5150 hold for danger to others. Pt was placed on a hold due to being aggressive with staff.Patient currently resides at assisted living located at [address] [place] [address]; ([phone]). REBA spoke with admin Mari who stated that pt will need to go to a nursing facility [facility] ([phone]).
--- NOTE | 2022-02-06 14:09 | NUR ---
Treatment Plan: Pt labile and psychotic unable to sign.
--- NOTE | 2022-02-06 14:19 | NUR ---
FACILITY CONTACT: REBA contacted Oz from [facility] ([phone]) and left a detailed voicemail to confirm of pt's bed. REBA spoke with Juanita phelan who stated that she does not have any information and to contact [facility] ([phone]), REBA, contacted [facility] but was unavailable at this time.
[2022-02-06] MEDS ORDERED: HALOPERIDOL 5 MG TABLET PO ONE (14:30)
--- NOTE | 2022-02-06 14:40 | NUR ---
Facility Contact: REBA spoke with Oz ([phone]) from [facility] who stated that they do have a bed available for pt but requested this insurance writer to fax clinicals F: [phone]. SW faxed clinicals and will fax progress notes when pt is stable.
[2022-02-06] MEDS ORDERED: OXCARBAZEPINE 150 MG TABLET PO ONE (15:00)
[2022-02-06 16:24] VITALS: BP 132/68
--- NOTE | 2022-02-06 17:00 | NUR ---
NURSE NOTE: ACCU CHECK DONE AT THIS 1645. BS AT 561. 15 U OF INSULIN GIVEN PER SLIDING SCALE. WILL RECHECK IN ONE HOUR.
[2022-02-06] MEDS: HALOPERIDOL 1 MG TABLET PO SCH (17:18)
[2022-02-06] MEDS: METFORMIN 500 MG TABLET PO SCH (17:18)
[2022-02-06] MEDS: OXCARBAZEPINE 150 MG TABLET PO SCH (17:19)
[2022-02-06] MEDS: APIXABAN 2.5 MG TABLET PO SCH (17:19)
--- NOTE | 2022-02-06 17:45 | NUR ---
NURSE NOTE: ACCU CHECK DONE WITH BS AT 546. DR CHAVEZ NOTIFIED. NEW ORDERS AT THIS TIME. WILL CONT TO MONITOR.
[2022-02-06] MEDS ORDERED: INSULIN GLARGINE, 100 UNIT/ML CARTRIDGE SQ SCH ×2 (18:00→22:00)
[2022-02-06] MEDS ORDERED: INSULIN REGULAR, HUMAN 100 UNIT/ML 3 ML VIAL SQ STA (18:09)
--- NOTE | 2022-02-06 18:10 | NUR ---
NURSE NOTE: DR CHAVEZ ORDERED ONE TIME DOSE OF 20 UNITS OF REGULAR INSULIN X1 NOW. INSULIN ADMINISTERED ORDERED. PT MARK WELL. WILL CONT TO MONITOR.
--- NOTE | 2022-02-06 19:30 | NUR ---
NURSE NOTE: BS RECHECKED AT THIS TIME. DOWN TO 346. ADMINISTRATIVE LIBRARY ASSISTANT NURSE INFORMED OF NEW READING.
--- NOTE | 2022-02-06 20:13 | NUR ---
RN NOTES; RECEIVED PT IN THE HALLWAY WALKING AROUND,AOX3 ABLE TO MAKE NEEDS KNOWN.NO COMPLAIN OF PAIN/DISCOMFORT,SAFETY MEASURE IN PLACE,WILL CONTINUE TO MONITOR.
[2022-02-06 20:19] VITALS: BP 153/72
[2022-02-06] MEDS: TAMSULOSIN 0.4 MG CAP.SR.24H PO SCH (21:17)
[2022-02-06] MEDS: TEMAZEPAM 15 MG CAPSULE PO PRN (21:17)
[2022-02-06] MEDS: INSULIN GLARGINE, 100 UNIT/ML CARTRIDGE SQ SCH (21:21)
[2022-02-06] MEDS: *INSULIN REGULAR(HUMULIN R)HUM 100 UNIT/ML VIAL SQ PRN (21:23)
[2022-02-06] MEDS: BLOOD SUGAR DIAGNOSTIC 1 EACH STRIP IN SCH (21:31)
--- NOTE | 2022-02-07 06:13 | NUR ---
RN NOTE: PATIENT NOTED WITH NON PRODUCTIVE COUGH. PATIENT IS AFEBRILE. V/S STABLE. NO CONGESTION NOTED. NOTIFIED WAITER/WAITRESS HEAD TAMEZ WITH NEW ORDER OF CHEST X-RAY NOTED AND CARRIED OUT. WILL ENDORSE TO DAY SHIFT FOR CONTINUITY OF CARE.
[2022-02-07 08:00] VITALS: BP 124/65
[2022-02-07 08:03] LABS: ALBUMIN 2.7 g/dL (3.4-5.0); BILIRUBIN,TOTAL 0.3 mg/dL (0.2-1.0); CALCIUM, SERUM 10.7 mg/dL (8.5-10.1); CREATININE 0.5 mg/dL (0.6-1.3); MAGNESIUM 1.6 mg/dL (1.8-2.4); PHOSPHORUS 2.2 mg/dL (2.5-4.9); POTASSIUM 4.6 mmol/L (3.5-5.1); TOTAL PROTEIN, SERUM 5.8 g/dL (6.4-8.2)
[2022-02-07 08:39] LABS: BASOPHILS % (AUTO) 0.3 % (0.0-2.0); EOSINOPHILS % (AUTO) 4.3 % (0.0-6.0); HEMATOCRIT 33 % (39-51); HEMOGLOBIN 11.7 g/dL (13.5-17.5); MEAN CORPUSCULAR HGB CONC 36 g/dl (31.0-36.0); MEAN CORPUSCULAR VOLUME 101 fL (80-96); MONOCYTES # (AUTO) 0.7 K/uL (0.1-1.30); MONOCYTES % (AUTO) 10.2 % (2.0-12.0); NEUTROPHILS # (AUTO) 4.2 K/uL (1.8-8.9); NEUTROPHILS % (AUTO) 57.2 % (43.0-81.0); PLATELET COUNT (AUTO) 292 K/uL (150-450); RED BLOOD CELL COUNT(AUTO) 3.25 MIL/uL (4.5-6.0); WHITE BLOOD COUNT (AUTO) 7.3 K/uL (4.3-11.0)
[2022-02-07] MEDS: EMPAGLIFLOZIN 25 MG TABLET PO SCH (08:58)
[2022-02-07] MEDS: PANTOPRAZOLE 40 MG TABLET.DR PO SCH (08:58)
[2022-02-07] MEDS: BLOOD SUGAR DIAGNOSTIC 1 EACH STRIP IN SCH ×4 (08:58→21:14)
[2022-02-07] MEDS: LISINOPRIL (20MG) 20 MG TABLET PO SCH (08:59)
[2022-02-07] MEDS: HALOPERIDOL 1 MG TABLET PO SCH ×2 (08:59→16:17)
[2022-02-07] MEDS: OXCARBAZEPINE 150 MG TABLET PO SCH ×2 (08:59→16:17)
[2022-02-07] MEDS: AMLODIPINE BESYLATE 5 MG TABLET PO SCH (08:59)
[2022-02-07] MEDS: INSULIN GLARGINE, 100 UNIT/ML CARTRIDGE SQ SCH ×3 (09:00→21:00)
[2022-02-07] MEDS ORDERED: MAGNESIUM OXIDE 400 MG TABLET PO SCH (09:00)
[2022-02-07] MEDS: METOPROLOL SUCCINATE 25 MG TAB.SR.24H PO SCH (09:00)
--- NOTE | 2022-02-07 09:00 | NUR ---
RN NOTE Patient refused Lantus scheduled for 0900, he also refused the Insulin regular for sliding scale coverage. Patient's blood glucose is 133. Will continue to monitor.
[2022-02-07] MEDS: APIXABAN 2.5 MG TABLET PO SCH ×2 (09:01→16:18)
[2022-02-07] MEDS: INSULIN REGULAR, HUMAN 100 UNIT/ML 3 ML VIAL SQ PRN ×2 (09:01→12:11)
[2022-02-07] MEDS: METFORMIN 500 MG TABLET PO SCH ×2 (09:05→16:17)
[2022-02-07] MEDS ORDERED: MAGNESIUM OXIDE 400 MG TABLET PO ONE (11:00)
[2022-02-07] MEDS ORDERED: NEUTRA PHOS 1 POWD.PACKET PO ONE (14:00)
[2022-02-07 16:00] VITALS: BP 108/58
--- NOTE | 2022-02-07 17:49 | NUR ---
RN NOTE Patient's blood glucose is 135, refused Insulin coverage for sliding scale. Explained the risks of not getting Insulin, patient still refused.
--- NOTE | 2022-02-07 18:33 | NUR ---
GPS/RN NOTE Patient in bed, resting. Patient roamed around the hallway and mostly stayed in the activity room, especially at meal times. No SOB or s/s of distress noted. Patient refused Insulin coverage this AM, blood glucose was 133. Also refused Insulin coverage at 1730, blood glucose was 135. Occasional non-productive cough noted. CXR done in AM, Dr. Castro notified of results. Patient was compliant with all other PO medications. Will continue to monitor until change of shift.
[2022-02-07 20:00] VITALS: BP 115/55
--- NOTE | 2022-02-07 20:42 | NUR ---
RN NOTES: PATIENT RESTING IN HER ROOM, NO S/SX OF ACUTE DISTRESS NOTED. PATIENT EASILY AGITATED, DISORGANIZED, DISHELVED ,NEEDY , PARANOID, PARANOID, NEEDS FREQUENT REDIRECTION. DENIES SI/HI AT THIS TIME.ENCOURAGE TO VERBALIZED ANY FEELING OR CONCERN, SAFETY MEASURES IN PLACE. WILL CONTINUE TO MONITOR Q15MIN ROUNDS FOR SAFETY AND BEHAVIOR.
[2022-02-07] MEDS: TAMSULOSIN 0.4 MG CAP.SR.24H PO SCH (21:13)
--- NOTE | 2022-02-07 21:16 | NUR ---
RN NOTE:PT. BLOOD SUGAR IS 149 , PT REFUSED LANTUS OF 20 UNITS , EASILY AGITATED,PARANOID, ENCOURAGED X 3 PT. STRONGLY REFUSED, PER PT. STATES MY BLOOD SUGAR IS FINE .
[2022-02-07] MEDS: *INSULIN REGULAR(HUMULIN R)HUM 100 UNIT/ML VIAL SQ PRN (21:41)
[2022-02-07] MEDS: GUAIFENESIN/D-METHORPHAN HB 5 ML UDC PO PRN (23:37)
[2022-02-08] MEDS: BLOOD SUGAR DIAGNOSTIC 1 EACH STRIP IN SCH ×4 (07:53→21:11)
[2022-02-08 08:00] VITALS: BP 130/71
[2022-02-08] MEDS: PANTOPRAZOLE 40 MG TABLET.DR PO SCH (08:15)
[2022-02-08] MEDS: HALOPERIDOL 1 MG TABLET PO SCH ×2 (08:25→16:30)
[2022-02-08] MEDS: METFORMIN 500 MG TABLET PO SCH ×2 (08:25→16:30)
[2022-02-08] MEDS: OXCARBAZEPINE 150 MG TABLET PO SCH ×2 (08:26→16:30)
[2022-02-08] MEDS: LISINOPRIL (20MG) 20 MG TABLET PO SCH (08:26)
[2022-02-08] MEDS: APIXABAN 2.5 MG TABLET PO SCH ×2 (08:27→16:31)
[2022-02-08] MEDS: AMLODIPINE BESYLATE 5 MG TABLET PO SCH (08:32)
[2022-02-08] MEDS: METOPROLOL SUCCINATE 25 MG TAB.SR.24H PO SCH (08:32)
[2022-02-08] MEDS: INSULIN GLARGINE, 100 UNIT/ML CARTRIDGE SQ SCH ×2 (08:39→21:00)
[2022-02-08] MEDS: EMPAGLIFLOZIN 25 MG TABLET PO SCH (09:40)
--- NOTE | 2022-02-08 09:57 | NUR ---
RN-NOTES PATIENT BS WAS 160 MG/DL, 2 UNITS OF REGULAR INSULIN AND 20 UNITS OF LANTUS REFUSED. STATED" I DON'T WANT THE INSULIN BECAUSE 160 IS NOT THAT HIGH ABOVE TWO HUNDRED I WILL TAKE THE INSULIN ALSO I DON'T TAKE LANTUS" EXPLAINED RISK AND BENEFITS BUT PATIENT STILL REFUSED. CHARGE NURSE AWARE.
[2022-02-08] MEDS: GUAIFENESIN/D-METHORPHAN HB 5 ML UDC PO PRN ×2 (11:59→19:54)
[2022-02-08] MEDS: INSULIN REGULAR, HUMAN 100 UNIT/ML 3 ML VIAL SQ PRN ×2 (12:01→17:36)
[2022-02-08 16:00] VITALS: BP 115/54
[2022-02-08] MEDS: GLUCERNA SHAKE 237 ML CAN PO SCH (17:11)
--- NOTE | 2022-02-08 18:23 | NUR ---
RN-NOTES PATIENT VISIBLE IN THE UNIT,A/O X1-2, NOTED WITH EASILY ANGRY,DEMANDING AND NEEDY BEHAVIOR.SELECTIVE WITH MEDICATION . AMBULATORY STEADY GAIT. ALL NEEDS ATTENDED AND ANTICIPATED.WILL CONT. MONITORING FOR SAFETY AND BEHAVIOR.WILL ENDORSE TO INCOMING NURSE FOR CONTINUITY OF CARE.
[2022-02-08 20:00] VITALS: BP 124/56
--- NOTE | 2022-02-08 20:04 | NUR ---
RN NOTES: PATIENT RESTING IN HER ROOM, NO S/SX OF ACUTE DISTRESS NOTED. PATIENT EASILY AGITATED, DISORGANIZED, DISHELVED,HYPERVERBAL, TALKING TO SELF,NEEDY , PARANOID, PARANOID, NEEDS FREQUENT REDIRECTION. DENIES SI/HI AT THIS TIME.ENCOURAGE TO VERBALIZED ANY FEELING OR CONCERN, SAFETY MEASURES IN PLACE. WILL CONTINUE TO MONITOR Q15MIN ROUNDS FOR SAFETY AND BEHAVIOR.
[2022-02-08] MEDS: TAMSULOSIN 0.4 MG CAP.SR.24H PO SCH (21:11)
--- NOTE | 2022-02-08 21:12 | NUR ---
RN NOTE:PT. BLOOD SUGAR IS 144 , PT REFUSED LANTUS OF 20 UNITS , EASILY AGITATED,PARANOID, ENCOURAGED X 3 PT. STRONGLY REFUSED, PER PT. STATES MY BLOOD SUGAR IS FINE .
[2022-02-08] MEDS: *INSULIN REGULAR(HUMULIN R)HUM 100 UNIT/ML VIAL SQ PRN (21:13)
[2022-02-09] MEDS: GUAIFENESIN/D-METHORPHAN HB 5 ML UDC PO PRN ×3 (02:01→21:44)
[2022-02-09 08:00] VITALS: BP 126/69
[2022-02-09] MEDS: BLOOD SUGAR DIAGNOSTIC 1 EACH STRIP IN SCH ×4 (08:14→21:29)
[2022-02-09] MEDS: PANTOPRAZOLE 40 MG TABLET.DR PO SCH (08:14)
[2022-02-09] MEDS: GLUCERNA SHAKE 237 ML CAN PO SCH ×2 (08:14→16:23)
[2022-02-09] MEDS: METFORMIN 500 MG TABLET PO SCH ×2 (08:19→16:23)
[2022-02-09] MEDS: HALOPERIDOL 1 MG TABLET PO SCH ×2 (08:19→16:23)
[2022-02-09] MEDS: OXCARBAZEPINE 150 MG TABLET PO SCH ×3 (08:20→16:23)
[2022-02-09] MEDS: AMLODIPINE BESYLATE 5 MG TABLET PO SCH (08:21)
[2022-02-09] MEDS: LISINOPRIL (20MG) 20 MG TABLET PO SCH (08:21)
[2022-02-09] MEDS: APIXABAN 2.5 MG TABLET PO SCH ×2 (08:24→16:24)
[2022-02-09] MEDS: EMPAGLIFLOZIN 25 MG TABLET PO SCH (08:25)
[2022-02-09] MEDS: INSULIN REGULAR, HUMAN 100 UNIT/ML 3 ML VIAL SQ PRN ×3 (08:27→17:39)
[2022-02-09] MEDS: INSULIN GLARGINE, 100 UNIT/ML CARTRIDGE SQ SCH ×2 (08:38→21:00)
[2022-02-09] MEDS: METOPROLOL SUCCINATE 25 MG TAB.SR.24H PO SCH (11:00)
[2022-02-09 16:00] VITALS: BP 124/63
--- NOTE | 2022-02-09 18:29 | NUR ---
RN-NOTES PATIENT VISIBLE IN THE UNIT,A/O X1-2, NOTED WITH EASILY ANGRY,DEMANDING AND NEEDY BEHAVIOR.SELECTIVE WITH MEDICATION . REFUSED 20 UNITS OF LANTUS DESPITE EXPLANATIONS RISK AND BENEFITS.AMBULATORY STEADY GAIT. ALL NEEDS ATTENDED AND ANTICIPATED.WILL CONT. MONITORING FOR SAFETY AND BEHAVIOR.WILL ENDORSE TO INCOMING NURSE FOR CONTINUITY OF CARE.
--- NOTE | 2022-02-09 19:10 | NUR ---
RN NOTES: PATIENT RESTING IN HIS ROOM, NO S/SX OF ACUTE DISTRESS NOTED. PATIENT EASILY AGITATED,NEEDY , PARANOID, PARANOID, NEEDS FREQUENT REDIRECTION. DENIES SI/HI AT THIS TIME.ENCOURAGE TO VERBALIZED ANY FEELING OR CONCERN, SAFETY MEASURES IN PLACE. WILL CONTINUE TO MONITOR Q15MIN ROUNDS FOR SAFETY AND BEHAVIOR.
[2022-02-09 20:00] VITALS: BP 138/58
[2022-02-09] MEDS: *INSULIN REGULAR(HUMULIN R)HUM 100 UNIT/ML VIAL SQ PRN ×2 (21:30→21:42)
[2022-02-09] MEDS: TAMSULOSIN 0.4 MG CAP.SR.24H PO SCH (21:45)
[2022-02-10] MEDS: GUAIFENESIN/D-METHORPHAN HB 5 ML UDC PO PRN ×2 (02:34→21:45)
[2022-02-10] MEDS: MAGNESIUM HYDROXIDE 30 ML UDC PO PRN ×2 (05:43→14:41)
[2022-02-10 08:00] VITALS: BP 130/62
[2022-02-10] MEDS: INSULIN REGULAR, HUMAN 100 UNIT/ML 3 ML VIAL SQ PRN ×3 (08:01→16:55)
[2022-02-10] MEDS: GLUCERNA SHAKE 237 ML CAN PO SCH ×2 (08:02→16:08)
[2022-02-10] MEDS: PANTOPRAZOLE 40 MG TABLET.DR PO SCH (08:02)
[2022-02-10] MEDS: BLOOD SUGAR DIAGNOSTIC 1 EACH STRIP IN SCH ×4 (08:03→21:46)
[2022-02-10] MEDS: INSULIN GLARGINE, 100 UNIT/ML CARTRIDGE SQ SCH ×2 (09:00→21:47)
--- NOTE | 2022-02-10 09:00 | NUR ---
RN NOTE- PATIENT RESTING IN HIS ROOM, NO S/SX OF ACUTE DISTRESS NOTED. PATIENT EASILY AGITATED,NEEDY , PARANOID, PARANOID, NEEDS FREQUENT REDIRECTION. DENIES SI/HI AT THIS TIME.ENCOURAGE TO VERBALIZED ANY FEELING OR CONCERN, SAFETY MEASURES IN PLACE. WILL CONTINUE TO MONITOR Q15MIN ROUNDS FOR SAFETY AND BEHAVIOR.
[2022-02-10] MEDS: METFORMIN 500 MG TABLET PO SCH ×2 (09:22→16:09)
[2022-02-10] MEDS: LISINOPRIL (20MG) 20 MG TABLET PO SCH (09:23)
[2022-02-10] MEDS: AMLODIPINE BESYLATE 5 MG TABLET PO SCH (09:23)
[2022-02-10] MEDS: METOPROLOL SUCCINATE 25 MG TAB.SR.24H PO SCH (09:24)
[2022-02-10] MEDS: APIXABAN 2.5 MG TABLET PO SCH ×2 (09:24→16:09)
[2022-02-10] MEDS: OXCARBAZEPINE 150 MG TABLET PO SCH ×3 (09:24→16:09)
[2022-02-10] MEDS: EMPAGLIFLOZIN 25 MG TABLET PO SCH (09:26)
[2022-02-10] MEDS ORDERED: HALOPERIDOL 1 MG TABLET PO SCH (09:30)
[2022-02-10] MEDS: HALOPERIDOL 5 MG TABLET PO SCH ×2 (12:22→16:09)
[2022-02-10 16:00] VITALS: BP 114/56
[2022-02-10 19:44] VITALS: BP 131/67
[2022-02-10] MEDS: TAMSULOSIN 0.4 MG CAP.SR.24H PO SCH (21:41)
[2022-02-10] MEDS: *INSULIN REGULAR(HUMULIN R)HUM 100 UNIT/ML VIAL SQ PRN (21:50)
--- NOTE | 2022-02-10 21:50 | NUR ---
Pt coughing and requested cough medicine. Robitussin DM syrup given as ordered. Will continue to monitor.
--- NOTE | 2022-02-10 23:00 | NUR ---
Post 1 hr Robitussin effective. Coughing decreased. No s/s of any kind of distress. Respiration even and unlabored without SOB noted. No s/s of pain or discomfort. No s/s of hypo/hyperglycemia. Compliant with BS check and med compliant during shift. Frequent visual check done for safety. Will continue to monitor.
[2022-02-11] MEDS: TEMAZEPAM 15 MG CAPSULE PO PRN ×2 (01:02→22:36)
--- NOTE | 2022-02-11 01:05 | NUR ---
Pt c/o insomnia. Least restrictive measures ineffective. Restoril 15 mg po prn given as ordered. Will continue to monitor.
--- NOTE | 2022-02-11 02:13 | NUR ---
Post 1 hr Restoril effective. Pt asleep in bed easy to arouse. Bed in low position and bed alarm on. Frequent visual check done for safety. Will continue to monitor.
[2022-02-11 08:00] VITALS: BP 113/63
[2022-02-11] MEDS: INSULIN GLARGINE, 100 UNIT/ML CARTRIDGE SQ SCH ×2 (09:00→21:09)
[2022-02-11] MEDS: HALOPERIDOL 5 MG TABLET PO SCH ×3 (09:06→16:34)
[2022-02-11] MEDS: APIXABAN 2.5 MG TABLET PO SCH ×2 (09:06→16:37)
[2022-02-11] MEDS: GLUCERNA SHAKE 237 ML CAN PO SCH ×2 (09:06→16:34)
[2022-02-11] MEDS: METFORMIN 500 MG TABLET PO SCH ×2 (09:06→16:34)
[2022-02-11] MEDS: PANTOPRAZOLE 40 MG TABLET.DR PO SCH (09:07)
[2022-02-11] MEDS: OXCARBAZEPINE 150 MG TABLET PO SCH ×3 (09:07→16:34)
[2022-02-11] MEDS: BLOOD SUGAR DIAGNOSTIC 1 EACH STRIP IN SCH ×4 (09:07→21:05)
[2022-02-11] MEDS: GUAIFENESIN/D-METHORPHAN HB 5 ML UDC PO PRN (09:07)
[2022-02-11] MEDS: LISINOPRIL (20MG) 20 MG TABLET PO SCH (09:07)
[2022-02-11] MEDS: AMLODIPINE BESYLATE 5 MG TABLET PO SCH (09:07)
[2022-02-11] MEDS: METOPROLOL SUCCINATE 25 MG TAB.SR.24H PO SCH (09:07)
--- NOTE | 2022-02-11 09:07 | NUR ---
RN NOTE Patient persistently coughing, non-productive. PRN Robitussin 5 ml given. Will continue to monitor.
[2022-02-11] MEDS: EMPAGLIFLOZIN 25 MG TABLET PO SCH (09:08)
--- NOTE | 2022-02-11 09:09 | NUR ---
RN NOTE Patient refused 0900 scheduled Lantus, blood glucose is 113. Will continue to monitor.
--- NOTE | 2022-02-11 12:00 | NUR ---
RN NOTE Patient's blood glucose is 187. Refused Insulin coverage for sliding scale. Explained the risks of not getting insulin, patient still refused. Will continue to monitor.
[2022-02-11 16:00] VITALS: BP 108/55
--- NOTE | 2022-02-11 17:49 | NUR ---
RN NOTE Patient's blood glucose is 137. Refused Insulin coverage for sliding scale. Explained the risks of not getting insulin, patient still refused. Will continue to monitor.
--- NOTE | 2022-02-11 18:01 | NUR ---
RN NOTE Patient is oriented to place, time and situation, was encouraged to verbalize thoughts, feelings and needs with staff, importance of medication compliance, patient was invited to participate in group activities, to socialize with peers and staff, safe and therapeutic environment was provided. Patient compliant with PO medications. Refused Insulin coverage per sliding scale, Dr. Yepez aware. Patient wound go to the activity room from time to time and was cooperative and remained calm the whole shift. Will monitor until change of shift.
[2022-02-11 20:00] VITALS: BP 134/66
[2022-02-11] MEDS: TAMSULOSIN 0.4 MG CAP.SR.24H PO SCH (21:19)
[2022-02-12] MEDS: GUAIFENESIN/D-METHORPHAN HB 5 ML UDC PO PRN ×2 (01:13→17:10)
[2022-02-12] MEDS: ACETAMINOPHEN 325 MG TABLET PO PRN (01:48)
[2022-02-12] MEDS: clonazePAM 0.5 MG TABLET PO PRN ×2 (01:48→20:20)
[2022-02-12 07:56] VITALS: BP 100/60
[2022-02-12] MEDS: BLOOD SUGAR DIAGNOSTIC 1 EACH STRIP IN SCH ×4 (08:37→21:04)
[2022-02-12] MEDS: GLUCERNA SHAKE 237 ML CAN PO SCH ×2 (08:39→16:05)
[2022-02-12] MEDS: APIXABAN 2.5 MG TABLET PO SCH ×2 (08:54→16:06)
[2022-02-12] MEDS: HALOPERIDOL 5 MG TABLET PO SCH ×3 (08:55→16:06)
[2022-02-12] MEDS: PANTOPRAZOLE 40 MG TABLET.DR PO SCH (08:55)
[2022-02-12] MEDS: METFORMIN 500 MG TABLET PO SCH ×2 (08:55→16:05)
[2022-02-12] MEDS: OXCARBAZEPINE 150 MG TABLET PO SCH ×2 (08:56→16:05)
[2022-02-12] MEDS: EMPAGLIFLOZIN 25 MG TABLET PO SCH (08:56)
[2022-02-12] MEDS: LISINOPRIL (20MG) 20 MG TABLET PO SCH (09:00)
[2022-02-12] MEDS: AMLODIPINE BESYLATE 5 MG TABLET PO SCH (09:00)
[2022-02-12] MEDS: INSULIN GLARGINE, 100 UNIT/ML CARTRIDGE SQ SCH ×2 (09:00→20:33)
[2022-02-12] MEDS: METOPROLOL SUCCINATE 25 MG TAB.SR.24H PO SCH (09:03)
--- NOTE | 2022-02-12 09:04 | NUR ---
gps rn note bllod pressure low 100/66 hold bp meds at this time blood suger 75 will hold metformin and insulin at this time
--- NOTE | 2022-02-12 11:37 | NUR ---
RN NOTE Patient is oriented to place, time and situation, was encouraged to verbalize thoughts, feelings and needs with staff, importance of medication compliance, patient was invited to participate in group activities, to socialize with peers and staff, safe and therapeutic environment was provided. Patient compliant with PO medications. Refused Insulin coverage per sliding scale,Patient wound go to the activity room from time to time and was cooperative at this time. Will monitor
[2022-02-12] MEDS: INSULIN REGULAR, HUMAN 100 UNIT/ML 3 ML VIAL SQ PRN ×2 (12:17→17:01)
--- NOTE | 2022-02-12 15:06 | NUR ---
REBA Family Contact: SW received a call from pt's sister Sarah ([phone]) and wanted updates. SW contacted back and left her a detailed voicemail.
[2022-02-12 15:54] VITALS: BP 114/57
--- NOTE | 2022-02-12 17:15 | NUR ---
GPS RN NOTE C\O COUGHING, ROBITUSSIN PO GIVEN ORDERED HAVING DINER IN DINNING ROOM ,ALL NEEDS ATTENDED ,WILL CONT TO MONITOR CLOSELY
--- NOTE | 2022-02-12 18:29 | NUR ---
GPS RN NOTE PATIENT RESTING IN BED, ALL NEEDS ATTENDED ,NOT IN DISTRESS OR ANXIETY OR AGITATION NOTED ,WILL CONT TO MONITOR
[2022-02-12 19:48] VITALS: BP 139/78
[2022-02-12] MEDS: TAMSULOSIN 0.4 MG CAP.SR.24H PO SCH (21:04)
[2022-02-12] MEDS: *INSULIN REGULAR(HUMULIN R)HUM 100 UNIT/ML VIAL SQ PRN (21:11)
[2022-02-12] MEDS: TEMAZEPAM 15 MG CAPSULE PO PRN (21:29)
[2022-02-13] MEDS: GUAIFENESIN/D-METHORPHAN HB 5 ML UDC PO PRN ×3 (04:44→20:24)
[2022-02-13] MEDS: ACETAMINOPHEN 325 MG TABLET PO PRN (04:46)
[2022-02-13 08:00] VITALS: BP 111/51
[2022-02-13] MEDS: BLOOD SUGAR DIAGNOSTIC 1 EACH STRIP IN SCH ×4 (08:09→21:50)
[2022-02-13] MEDS: GLUCERNA SHAKE 237 ML CAN PO SCH ×2 (08:10→17:56)
[2022-02-13] MEDS: PANTOPRAZOLE 40 MG TABLET.DR PO SCH (08:10)
[2022-02-13] MEDS: METFORMIN 500 MG TABLET PO SCH ×2 (08:10→17:54)
[2022-02-13] MEDS: HALOPERIDOL 5 MG TABLET PO SCH ×3 (08:37→17:54)
[2022-02-13] MEDS: OXCARBAZEPINE 150 MG TABLET PO SCH ×2 (08:38→17:55)
[2022-02-13] MEDS: clonazePAM 0.5 MG TABLET PO PRN (08:38)
--- NOTE | 2022-02-13 08:40 | NUR ---
NURSE NOTE: PT AGITATED AT THIS TIME. YELLING OUT LOUD, SAYING BELLIGERENT THINGS. CLONOPIN ADMINISTERED ORDERED. PT MARK WELL. WILL CONT TO MONITOR.
[2022-02-13] MEDS: APIXABAN 2.5 MG TABLET PO SCH ×2 (08:42→17:56)
[2022-02-13] MEDS: AMLODIPINE BESYLATE 5 MG TABLET PO SCH (08:47)
[2022-02-13] MEDS: LISINOPRIL (20MG) 20 MG TABLET PO SCH (08:47)
[2022-02-13] MEDS: METOPROLOL SUCCINATE 25 MG TAB.SR.24H PO SCH (08:48)
[2022-02-13] MEDS: EMPAGLIFLOZIN 25 MG TABLET PO SCH (08:53)
[2022-02-13] MEDS: INSULIN GLARGINE, 100 UNIT/ML CARTRIDGE SQ SCH ×3 (09:00→21:51)
[2022-02-13] MEDS: INSULIN REGULAR, HUMAN 100 UNIT/ML 3 ML VIAL SQ PRN ×2 (09:07→17:08)
--- NOTE | 2022-02-13 09:20 | NUR ---
NURSE NOTE: PT CALM AT THIS TIME. CLONOPIN EFFECTIVE. WILL CONT TO MONITOR.
--- NOTE | 2022-02-13 10:54 | NUR ---
Court Notification: SW contacted pt's sister Sarah probate conservator ([phone]) and left a voicemail of [phone].
--- NOTE | 2022-02-13 12:00 | NUR ---
Court Hearing: Patient's court hearing for 8050 was today and it was upheld for GD.
[2022-02-13] MEDS: clonazePAM 0.5 MG TABLET PO SCH ×2 (12:39→17:55)
[2022-02-13 16:00] VITALS: BP 142/52
[2022-02-13 20:06] VITALS: BP 122/61
[2022-02-13] MEDS: TAMSULOSIN 0.4 MG CAP.SR.24H PO SCH (21:02)
[2022-02-13] MEDS: *INSULIN REGULAR(HUMULIN R)HUM 100 UNIT/ML VIAL SQ PRN (21:53)
[2022-02-14] MEDS: GUAIFENESIN/D-METHORPHAN HB 5 ML UDC PO PRN ×3 (00:26→17:55)
[2022-02-14 08:00] VITALS: BP 115/62
[2022-02-14] MEDS: clonazePAM 0.5 MG TABLET PO SCH ×3 (08:29→16:55)
[2022-02-14] MEDS: METFORMIN 500 MG TABLET PO SCH ×2 (08:29→16:54)
[2022-02-14] MEDS: OXCARBAZEPINE 150 MG TABLET PO SCH ×2 (08:29→16:54)
[2022-02-14] MEDS: HALOPERIDOL 5 MG TABLET PO SCH ×3 (08:29→16:54)
[2022-02-14] MEDS: BLOOD SUGAR DIAGNOSTIC 1 EACH STRIP IN SCH ×4 (08:29→21:23)
[2022-02-14] MEDS: PANTOPRAZOLE 40 MG TABLET.DR PO SCH (08:29)
[2022-02-14] MEDS: AMLODIPINE BESYLATE 5 MG TABLET PO SCH (08:30)
[2022-02-14] MEDS: APIXABAN 2.5 MG TABLET PO SCH ×2 (08:30→16:55)
[2022-02-14] MEDS: LISINOPRIL (20MG) 20 MG TABLET PO SCH (08:30)
[2022-02-14] MEDS: EMPAGLIFLOZIN 25 MG TABLET PO SCH (08:33)
[2022-02-14] MEDS: GLUCERNA SHAKE 237 ML CAN PO SCH ×2 (08:36→17:08)
[2022-02-14] MEDS: INSULIN GLARGINE, 100 UNIT/ML CARTRIDGE SQ SCH ×2 (08:36→21:28)
--- NOTE | 2022-02-14 08:57 | NUR ---
Dr. Eller in the unit and examined the eys and ordered Tobrabex 1 drop each eye 5x a day for 5 days.
--- NOTE | 2022-02-14 10:12 | NUR ---
FACILITY CONTACT: REBA spoke with Oz john from [facility] ([phone]). She requested pt's H & P, progress notes, and medication list. REBA faxed.
[2022-02-14] MEDS: METOPROLOL SUCCINATE 25 MG TAB.SR.24H PO SCH (10:39)
--- NOTE | 2022-02-14 11:20 | NUR ---
FACILITY CONTACT: REBA spoke with Oz john from [facility] ([phone]) who apologized for the miscommunication and stated that they cannot accept pt due to behavioral issues and are trying to relocate pt to [address] [address] , (F:[phone]). SW sent H & P, progress notes, and medication list.
--- NOTE | 2022-02-14 11:34 | NUR ---
FACILITY REFERRAL: REBA sent clinicals to [facility] ([phone]) attention: [facility] for placement ([phone]). SW sent H & P, progress notes, and medication list.
[2022-02-14] MEDS: TOBRAMYCIN/DEXAMETH OPHTH DORPS 2.5 ML BOTTLE EACHEYE SCH ×4 (11:57→21:26)
--- NOTE | 2022-02-14 13:28 | NUR ---
Facility Contact: REBA spoke with Ezio from admissions ([phone]) who stated that pt is accepted and that pt has been with them in the past. Addendum: 02/14/22 at 1432 by REBA KOTHARI For facility Prasanna Watts
--- NOTE | 2022-02-14 13:29 | NUR ---
Facility Contact: SW spoke with Arlene admissions from [facility] [address] [place] [address] , (F:[phone]) who stated that pt is accepted.
--- NOTE | 2022-02-14 14:48 | NUR ---
REBA Family Contact: REBA contacted pt's sister Sarah ([phone]) probate conservator and gave her options of [facility] and [facility]. She stated that she would want pt to go to [facility].
--- NOTE | 2022-02-14 15:03 | NUR ---
RN-NOTES RECEIVED T.O ORDER FROM DR. BENITEZ OF CBC,BMP AND STAT COVID. NOTED AND CARRIED OUT. Addendum: 02/14/22 at 1506 by KENDRA HECTOR RN IN ADDITION TO MY ABOVE NOTES. DR. BENITEZ MADE AWARE OF PATIENT'S C-RAY RESULTS WITH ORDERS.
[2022-02-14 16:00] VITALS: BP 128/63
[2022-02-14 16:37] LABS: BASOPHILS % (AUTO) 0.4 % (0.0-2.0); EOSINOPHILS % (AUTO) 1.3 % (0.0-6.0); HEMATOCRIT 33 % (39-51); HEMOGLOBIN 10.8 g/dL (13.5-17.5); LYMPHOCYTES # (AUTO) 1.3 K/uL (0.8-4.8); LYMPHOCYTES % (AUTO) 11.6 % (20.0-44.0); MEAN CORPUSCULAR HGB CONC 33 g/dl (31.0-36.0); MEAN CORPUSCULAR VOLUME 95 fL (80-96); MONOCYTES % (AUTO) 8.9 % (2.0-12.0); NEUTROPHILS # (AUTO) 8.6 K/uL (1.8-8.9); NEUTROPHILS % (AUTO) 77.8 % (43.0-81.0); PLATELET COUNT (AUTO) 342 K/uL (150-450)
[2022-02-14 17:00] LABS: CALCIUM, SERUM 10.5 mg/dL (8.5-10.1); CREATININE 0.6 mg/dL (0.6-1.3); POTASSIUM 4.5 mmol/L (3.5-5.1)
--- NOTE | 2022-02-14 17:56 | NUR ---
RN-NOTES NOTED PATIENT WITH EPISODE OF COUGHING. ROBITUSSIN 5ML GIVEN PRN ORDER.
--- NOTE | 2022-02-14 18:03 | NUR ---
RN-NOTES PATIENT VISIBLE IN THE UNIT,A/O X1-2, ABLE TO WHEELED SELF IN THE UNIT.NOTED WITH EASILY ANGRY,DEMANDING AND NEEDY BEHAVIOR.SELECTIVE WITH MEDICATION . REFUSED 20 UNITS OF LANTUS DESPITE EXPLANATIONS RISK AND BENEFITS. ALL NEEDS ATTENDED AND ANTICIPATED.WILL CONT. MONITORING FOR SAFETY AND BEHAVIOR.WILL ENDORSE TO INCOMING NURSE FOR CONTINUITY OF CARE.
--- NOTE | 2022-02-14 19:30 | NUR ---
PATIENT RECEIVED ASLEEP, EASILY AWAKEN BY CALLING HIS NAME. A/O X1-2, SPO2 AT 82%. EASILY ANGRY, DEMANDING AND NEEDY BEHAVIOR. SELECTIVE WITH MEDICATION . HOB ELEVATED. O2 VIA NASAL CANNULA AT 3LPM PROVIDED. SPO2 INCREASED TO 93%. SAFETY MEASURES IN PLACE. WILL CONT MONITORING FOR SAFETY AND BEHAVIOR AND WILL CONTINUE PLAN OF CARE.
[2022-02-14 20:08] VITALS: BP 133/64
--- NOTE | 2022-02-14 20:43 | NUR ---
GPS RN NOTE, PATIENT VITAL SIGNS ARE FOLLOWS B/P 133/64, TEMP 97.9, RESPIRATIONS 20, PULSE 90, SPO2 87 % ON ROOM AIR. PATIENT HAS A COMPLAINT OF COUGH. PATIENT IS WHEEZING ON LEFT LOWER LUNG PER AUSCULTATION. PAGED [facility] AND INFORM RACHEL MUNIZ NP OF MY FINDINGS. RACHEL MUNIZ NP GAVE ORDER TO GIVE O2 2-3 LITERS VIA NASAL CANNULA TO KEEP SPO2 ABOVE 91 %, ALBUTEROL 2.5MG VIA NEB Q6HR PRN, AND IPRATROPIUM 0.5MG VIA NEB Q6HE PRN FOR WHEEZING. ALL ORDERS NOTED AND CARRIED OUT. WILL CONTINUE TO MONITOR THIS PATIENT MARLENE THE HELP OF STAFF.
[2022-02-14] MEDS ORDERED: ALBUTEROL FS 2.5 MG/3 ML VIAL.NEB NEB PRN (21:00)
[2022-02-14] MEDS ORDERED: IPRATROPIUM NEB FS 0.5 MG/2.5 ML AMPUL.NEB NEB PRN (21:00)
[2022-02-14] MEDS: INSULIN REGULAR, HUMAN 100 UNIT/ML 3 ML VIAL SQ PRN (21:25)
[2022-02-14] MEDS: TAMSULOSIN 0.4 MG CAP.SR.24H PO SCH (21:31)
[2022-02-15] MEDS: GUAIFENESIN/D-METHORPHAN HB 5 ML UDC PO PRN ×2 (00:03→04:05)
--- NOTE | 2022-02-15 05:45 | NUR ---
GPS RN NOTE, A OPERATOR UNABLE TO PROVIDE 1 TO 1 SITTER FOR DAY SHIFT. WILL ENDORSE TO DAY CHARGE NURSE AND FLOOR DAY NURSE. WILL CONTINUE TO MONITOR THIS PATIENT WITH THE HELP OF STAFF.
[2022-02-15] MEDS: TOBRAMYCIN/DEXAMETH OPHTH DORPS 2.5 ML BOTTLE EACHEYE SCH (06:04)
--- NOTE | 2022-02-15 06:32 | NUR ---
PATIENT ASLEEP IN BED, EASILY AWAKEN BY CALLING HIS NAME. A/O X1-2, SPO2 AT 91%-93% EASILY ANGRY, DEMANDING AND NEEDY BEHAVIOR. SELECTIVE WITH MEDICATION. HOB ELEVATED. O2 VIA NASAL CANNULA AT 2-3LPM IN PLACE. DUE MEDS AND PRN MEDS GIVEN NEEDED AND ORDERED. NEEDS ATTENDED. SAFETY MEASURES MAINTAINED. WILL ENDORSE TO NEXT SHIFT NURSE FOR CONTINUITY OF CARE.
[2022-02-15] MEDS: BLOOD SUGAR DIAGNOSTIC 1 EACH STRIP IN SCH (07:44)
[2022-02-15] MEDS: GLUCERNA SHAKE 237 ML CAN PO SCH (07:44)
[2022-02-15 08:00] VITALS: BP 115/65
[2022-02-15] MEDS: PANTOPRAZOLE 40 MG TABLET.DR PO SCH (08:05)
[2022-02-15] MEDS: OXCARBAZEPINE 150 MG TABLET PO SCH (08:05)
[2022-02-15 08:06] VITALS: BP 115/65
[2022-02-15] MEDS: clonazePAM 0.5 MG TABLET PO SCH (08:06)
[2022-02-15] MEDS: METFORMIN 500 MG TABLET PO SCH (08:06)
[2022-02-15] MEDS: LISINOPRIL (20MG) 20 MG TABLET PO SCH (08:06)
[2022-02-15] MEDS: APIXABAN 2.5 MG TABLET PO SCH (08:06)
[2022-02-15] MEDS: AMLODIPINE BESYLATE 5 MG TABLET PO SCH (08:06)
[2022-02-15] MEDS: EMPAGLIFLOZIN 25 MG TABLET PO SCH (08:07)
[2022-02-15] MEDS: INSULIN REGULAR, HUMAN 100 UNIT/ML 3 ML VIAL SQ PRN (08:08)
[2022-02-15] MEDS: ACETAMINOPHEN 325 MG TABLET PO PRN (08:15)
[2022-02-15] MEDS: INSULIN GLARGINE, 100 UNIT/ML CARTRIDGE SQ SCH (08:16)
--- NOTE | 2022-02-15 08:41 | NUR ---
Dr. Eller in the unit and ordered to transfer pt. to [facility] for pneumonia.
--- NOTE | 2022-02-15 08:50 | NUR ---
Dr. Yepez made aware that pt. with a transfer order from the medical doctor and he ordered to D/C hold and D/C pt. to [facility] for pneumonia and he reconciled on meds to continue
--- NOTE | 2022-02-15 08:54 | NUR ---
SW Transfer Note: Patient will be transferred to medical floor due to pneumonia. Dr. Yepez discontinued hold. Patient has a probate conservator sister Sarah ([phone]) who is involved in the care and would want pt to go to [facility] Address: [id number] [place] [address] [place] [address]; . Pt accepted at [facility] and spoke with Ezio ([phone]) who accepted pt.
--- NOTE | 2022-02-15 08:58 | NUR ---
Family Contact: SW contacted pt's sister ed Smith ([phone]) that pt will be transferred to the medical floor due to pneumonia. SW left a detailed voicemail.
[2022-02-15] MEDS ORDERED: HALOPERIDOL LACTATE 10 MG/5 ML UDC PO SCH (09:00)
[2022-02-15] MEDS ORDERED: AZITHROMYCIN 250 MG TABLET PO SCH (09:00)
[2022-02-15] MEDS ORDERED: CEFEPIME 1 GM VIAL IM SCH (09:00)
[2022-02-15 09:01] LABS: BASOPHILS % (AUTO) 0.2 % (0.0-2.0); EOSINOPHILS % (AUTO) 0.7 % (0.0-6.0); HEMATOCRIT 34 % (39-51); HEMOGLOBIN 11.3 g/dL (13.5-17.5); LYMPHOCYTES % (AUTO) 6.4 % (20.0-44.0); MEAN CORPUSCULAR HGB CONC 33 g/dl (31.0-36.0); MEAN CORPUSCULAR VOLUME 96 fL (80-96); MONOCYTES # (AUTO) 1.1 K/uL (0.1-1.30); MONOCYTES % (AUTO) 7.2 % (2.0-12.0); NEUTROPHILS % (AUTO) 85.5 % (43.0-81.0); PLATELET COUNT (AUTO) 359 K/uL (150-450); RED BLOOD CELL COUNT(AUTO) 3.57 MIL/uL (4.5-6.0); WHITE BLOOD COUNT (AUTO) 15.2 K/uL (4.3-11.0)
--- NOTE | 2022-02-15 09:45 | NUR ---
RN-DISCHARGE NOTES PATIENT HAD TRANSFER ORDER FROM DR. BENITEZ ( MANAGER MARKETING SALES) ( PSYCHIATRIST) MADE AWARE. PATIENT WAS TRANSFER TO ROOM 118A ,REPORT WAS GIVEN TO [facility] ACCOUNT DIRECTOR. PER SW PATIENT'S CONSERVATOR WAS MADE AWARE OF THE TRANSFER.
[2022-02-15] MEDS ORDERED: IPRA0.2S49 IH (10:15)
[2022-02-15] MEDS ORDERED: TEMA15CA PO (10:15)
[2022-02-15] MEDS ORDERED: AZIT500T PO (10:15)
[2022-02-15] MEDS ORDERED: CEFE1FRO IV (10:15)
[2022-02-15] MEDS ORDERED: HALO5TAB8 PO (10:15)
[2022-02-15] MEDS ORDERED: MAGN400O6 PO (10:15)
[2022-02-15] MEDS ORDERED: GUAI-671 PO (10:15)
[2022-02-15] MEDS ORDERED: ACET325T53 PO (10:15)
[2022-02-15] MEDS ORDERED: ALBU2.5V13 IH (10:15)
[2022-02-15] MEDS ORDERED: OXCA600T8 PO (10:15)
== END 2022-02-15 09:40 | disposition short-term general hospital (02) | DRG 885 ==
LOC: GPS 20:38
PROVIDERS: ADMIT Nurse Practitioner Psychiatric/Mental Health; ATTEND Internal Medicine
DX: F25.9 Schizoaffective disorder, unspecified (principal); I11.0 Hypertensive heart disease with heart failure; J18.9 Pneumonia, unspecified organism; D68.59 Other primary thrombophilia; I50.32 Chronic diastolic (congestive) heart failure; J44.0 Chronic obstructive pulmonary disease with (acute) lower respiratory infection; F29 Unspecified psychosis not due to a substance or known physiological condition; F41.9 Anxiety disorder, unspecified; E11.9 Type 2 diabetes mellitus without complications; E78.5 Hyperlipidemia, unspecified; Z20.822 Contact with and (suspected) exposure to COVID-19; Z79.01 Long term (current) use of anticoagulants; I48.0 Paroxysmal atrial fibrillation; K21.9 Gastro-esophageal reflux disease without esophagitis; Z87.891 Personal history of nicotine dependence; Z79.4 Long term (current) use of insulin; Z79.84 Long term (current) use of oral hypoglycemic drugs; Z79.899 Other long term (current) drug therapy; Y95 Nosocomial condition; Z53.20 Procedure and treatment not carried out because of patient's decision for unspecified reasons; G24.01 Drug induced subacute dyskinesia
CPT/HCPCS: 36415; 71045-TC; 80048-TC; 80053-TC; 80061-TC; 82565-TC; 82962-TC; 83735-TC; 84100-TC; 85025-TC; J0692; J1815

== ENCOUNTER 2022-02-15 09:44 | Inpatient (IN) | payer MEDICARE, OTHER ==
[~2022-02-15] VITALS: Ht 137.2 cm; Wt 35.8 kg
[~2022-02-15 09:44] MED LIST changes: +*INS REG3 SQ; +BENZ-38 PO; +BLOO-668; +ENOX40DI SQ; -HALO10TA13 PO; +HALO5TAB PO; -INSU100V3 SQ; +NUT.237L45 PO; +OXCA300T15 PO; -OXCA600T8 PO; +POLY15DR40 EACHEYE
[2022-02-15] MEDS ORDERED: MAG HYDROX/AL HYDROX/SIMETH 30 ML UDC PO PRN (10:00)
[2022-02-15] MEDS ORDERED: Z GUARD REMEDY 4 OZ OINT TP PRN (10:00)
[2022-02-15] MEDS ORDERED: ONDANSETRON HCL/PF 4 MG/2 ML VIAL IVP PRN (10:00)
[2022-02-15] MEDS ORDERED: IPRA0.2S49 IH (10:15)
[2022-02-15] MEDS ORDERED: ALBU2.5V13 IH (10:15)
[2022-02-15] MEDS ORDERED: ACET325T53 PO (10:15)
[2022-02-15] MEDS ORDERED: HALO5TAB8 PO (10:15)
[2022-02-15] MEDS ORDERED: GUAI-671 PO (10:15)
[2022-02-15] MEDS ORDERED: AZIT500T PO (10:15)
[2022-02-15] MEDS ORDERED: TEMA15CA PO (10:15)
[2022-02-15] MEDS ORDERED: MAGN400O6 PO (10:15)
[2022-02-15] MEDS ORDERED: OXCA600T8 PO (10:15)
[2022-02-15] MEDS ORDERED: CEFE1FRO IV (10:15)
--- NOTE | 2022-02-15 11:20 | NUR ---
RN NOTE RECEIVED PT FROM GPS, SPOKE WITH CECY CRISTINA FOR REPORT AND MARIE.
[2022-02-15] MEDS ORDERED: CEFEPIME 2 GM in IV D5W 100 ML IV SCH (12:00)
--- NOTE | 2022-02-15 12:00 | NUR ---
SW Transfer Note: Patient will be transferred to medical floor due to pneumonia. Dr. Yepez discontinued hold. Patient has a probate conservator sister Sarah ([phone]) who is involved in the care and would want pt to go to [facility] Address: [id number] [place] [address] [place] [address]; . Pt accepted at [facility] and spoke with Ezio ([phone]) who accepted pt.
[2022-02-15] MEDS: CEFEPIME 1 GM in IV D5W 50 ML IV SCH (12:40)
[2022-02-15] MEDS: AZITHROMYCIN 500 MG in IV D5W 250 ML IV SCH (12:40)
[2022-02-15] MEDS: ENOXAPARIN SODIUM 40 MG/0.4 ML DISP.SYRIN SQ SCH (12:41)
[2022-02-15 13:00] VITALS: BP 126/67
[2022-02-15] MEDS: IPRATROPIUM NEB FS 0.5 MG/2.5 ML AMPUL.NEB NEB SCH ×2 (13:30→19:30)
[2022-02-15] MEDS: ACETAMINOPHEN 325 MG TABLET PO PRN (14:02)
[2022-02-15 16:00] VITALS: BP 112/52
--- NOTE | 2022-02-15 19:03 | NUR ---
RN NOTE PT RESTING IN BED, IN O2 VIA NC @2L. WITH O2 SAT 96. PT ON TELE MONITOR WITH SR READING. WITH IV ACCESS ON LFA G20 WITH IVF NS RUNNING @75/HR. DUE MEDS GIVEN. AM/PM CARE RENDERED. SAFETY MEASURES FOLLOWED. HOB ELEVATED MORE THAN 35 AT ALL TIMES.
--- NOTE | 2022-02-15 19:20 | NUR ---
RN NOTES RECEIVED REPORT FROM MORNING RN. PATIENT IN BED A/OX 2-3 WITH PERIODS OF AGITATION. ON NASAL CANULA @2LPM SATING 98% NO SOB NO DISTRESS NOTED AT THIS TIME. WITH IV ACCESS AT LFA@ 20 PATENT ON CONTINUOS IVF NS@75ML/HR. ALL SAFETY MEASURES IN PLACE AT ALL TIMES. HOB ELEVATED. CALL LIGHT WITHIN REACH. WILL CLOSELY MONITOR THE PATIENT
--- NOTE | 2022-02-15 19:56 | NUR ---
BREATHING TX NOT GIVEN DUE TO PENDING PCR COVID TEST RESULT. RN GÉNESIS AWARE. NO RESPIRATORY DISTRESS NOTED AT THIS TIME. WILL CONTINUE TO MONITOR T/O SHIFT.
[2022-02-15 20:00] VITALS: BP 153/76
[2022-02-15] MEDS ORDERED: TEMAZEPAM 15 MG CAPSULE PO PRN (21:30)
[2022-02-15] MEDS: HALOPERIDOL 5 MG TABLET PO SCH (21:46)
[2022-02-15] MEDS: GUAIFENESIN/CODEINE 10 ML UDC PO PRN (21:46)
[2022-02-16] VITALS: BP 138/76
[2022-02-16] MEDS: CEFEPIME 1 GM in IV D5W 50 ML IV SCH (00:13)
[2022-02-16] MEDS: IPRATROPIUM NEB FS 0.5 MG/2.5 ML AMPUL.NEB NEB SCH ×4 (01:01→19:30)
[2022-02-16 04:00] VITALS: BP 140/75
[2022-02-16] MEDS: IV NS 0.9% 1,000 ML IV PRN (04:50)
[2022-02-16 05:36] LABS: ABG BASE EXCESS 8.6 mmol/L; ABG OXYGEN SATURATION 90.4 % (92.0-98.5); ABG PO2 60.6 mmHg (75.0-100.0); AaDO2 105.6 mmHg; COHb 0.7 % (0.5-1.5); MetHb 0.3 % (0.0-1.5); O2Hb 89.5 % (94.0-97.0); SITE, ABG Right Radial; VENT MODE, BG NASAL CANNULA
--- NOTE | 2022-02-16 06:52 | NUR ---
RN NOTES PATIENT REMAINS STABLE. PATIENT CONFUSED AND GETTING OUT OF BED. FREQUENT VISUAL MONITORING RENDERED. WILL ENDORSED TO MORNING SHIFT FOR MARIE
[2022-02-16 07:32] LABS: HEMATOCRIT 35 % (39-51); HEMOGLOBIN 11.8 g/dL (13.5-17.5); MEAN CORPUSCULAR HGB CONC 34 g/dl (31.0-36.0); MEAN CORPUSCULAR VOLUME 95 fL (80-96); NEUTROPHILS % (AUTO) 79.9 % (43.0-81.0); PLATELET COUNT (AUTO) 350 K/uL (150-450); RED BLOOD CELL COUNT(AUTO) 3.72 MIL/uL (4.5-6.0)
[2022-02-16 07:33] LABS: BASOPHILS % (AUTO) 0.3 % (0.0-2.0); LYMPHOCYTES # (AUTO) 1.1 K/uL (0.8-4.8); MONOCYTES % (AUTO) 8.8 % (2.0-12.0); NEUTROPHILS # (AUTO) 8.8 K/uL (1.8-8.9)
[2022-02-16 07:49] LABS: ALBUMIN 2.8 g/dL (3.4-5.0); BILIRUBIN,TOTAL 0.2 mg/dL (0.2-1.0); CALCIUM, SERUM 10.6 mg/dL (8.5-10.1); CREATININE 0.6 mg/dL (0.6-1.3); MAGNESIUM 1.7 mg/dL (1.8-2.4); PHOSPHORUS 2.5 mg/dL (2.5-4.9); POTASSIUM 4.4 mmol/L (3.5-5.1); TOTAL PROTEIN, SERUM 6.5 g/dL (6.4-8.2)
[2022-02-16 08:00] VITALS: BP 157/82
[2022-02-16] MEDS: HALOPERIDOL 5 MG TABLET PO SCH ×3 (08:11→17:28)
[2022-02-16] MEDS: AZITHROMYCIN 500 MG in IV D5W 250 ML IV SCH (10:25)
[2022-02-16] MEDS: ENOXAPARIN SODIUM 40 MG/0.4 ML DISP.SYRIN SQ SCH (10:30)
[2022-02-16] MEDS ORDERED: Magnesium 1GM/D5W 100ML PREMIX 100 ML IV SCH (11:00)
[2022-02-16] MEDS: CEFEPIME 2 GM in IV D5W 100 ML IV SCH (12:31)
[2022-02-16] MEDS: Magnesium 1GM/D5W 100ML PREMIX 100 ML IV SCH ×2 (14:01→15:38)
--- NOTE | 2022-02-16 15:00 | NUR ---
RN NOTE PATIENT REFUSES THE HEAD OF THE BED UP PER DR'S ORDER 35 DEGREE. PATIENT LIKES TO SLEEP FLAT IN HIS BED.
[2022-02-16 16:00] VITALS: BP 173/87
--- NOTE | 2022-02-16 19:20 | NUR ---
RN NOTES RECEIVED REPORT FROM MORNING SHIFT. PATIENT IN BED A/O X2. ON NASAL CANULA AT 3LPM SATING 96% NO SOB NO DISTRESS NOTED AT THIS TIME. WITH IV ACCESS AT LFA #22 PATENT FLSUHES WELL. ALL SAFETY MEASURES IN PLACE. HOB ELEVATED. CALL LIGHT WITHIN REACH. BED ALARM ON AT ALL TIMES
--- NOTE | 2022-02-16 19:45 | NUR ---
RN CLOSING NOTES PATIENT REMAINS STABLE. PATIENT CONFUSED YELLING AND WANT TO BE DISCHARGE. PATINET ON ANTIBIOTICS AND MAGNESIUM DRIPS. FREQUENT VISUAL MONITORING RENDERED. WILL ENDORSED TO TOP STITCHER RN FOR CONTINUITY OF CARE.
--- NOTE | 2022-02-16 19:50 | NUR ---
RT NOTE BREATHING TX NOT GIVEN DUE TO PENDING COVID TEST RESULTS.
[2022-02-16 20:00] VITALS: BP 151/82
[2022-02-17] VITALS: BP 137/74
[2022-02-17] MEDS: CEFEPIME 2 GM in IV D5W 100 ML IV SCH ×3 (00:31→23:49)
[2022-02-17] MEDS: IPRATROPIUM NEB FS 0.5 MG/2.5 ML AMPUL.NEB NEB SCH ×4 (01:30→20:01)
[2022-02-17] MEDS: GUAIFENESIN/CODEINE 10 ML UDC PO PRN ×3 (03:52→22:39)
[2022-02-17 04:00] VITALS: BP 139/80
[2022-02-17] MEDS: IV NS 0.9% 1,000 ML IV PRN (05:17)
[2022-02-17 08:00] VITALS: BP 144/69
[2022-02-17] MEDS: HALOPERIDOL 5 MG TABLET PO SCH ×3 (09:05→16:38)
[2022-02-17] MEDS: AZITHROMYCIN 500 MG in IV D5W 250 ML IV SCH (10:34)
[2022-02-17] MEDS: ENOXAPARIN SODIUM 40 MG/0.4 ML DISP.SYRIN SQ SCH (11:45)
[2022-02-17 12:00] VITALS: BP 171/95
[2022-02-17 16:00] VITALS: BP 142/75
--- NOTE | 2022-02-17 19:30 | NUR ---
PT SLEEPING IN L LATERAL POSITION. RESPIRATIONS EVEN AND UNLABORED ON 3 LPM NC. SKIN IS INTACT, WARM AND DRY. ELIAN 20G IV INTACT. NS INFUSING AT 75 MLS/HR. SAFETY PRECAUTIONS IN PLACE. BED LOCKED AND AT LOWEST LEVEL. CALL LIGHT WITHIN REACH. BED ALARM ON. WILL CONTINUE TO MONITOR.
[2022-02-17 20:00] VITALS: BP 153/68
[2022-02-18] VITALS: BP 153/68
[2022-02-18] MEDS: IPRATROPIUM NEB FS 0.5 MG/2.5 ML AMPUL.NEB NEB SCH ×5 (01:30→20:13)
[2022-02-18] MEDS: GUAIFENESIN/CODEINE 10 ML UDC PO PRN ×2 (03:53→22:14)
[2022-02-18 04:00] VITALS: BP 153/85
--- NOTE | 2022-02-18 06:45 | NUR ---
RN CLOSING NOTE PT A&OX2, IRRITABLE AND YELLING AT STAFF. SKIN IS WARM AND DRY. RESPIRATIONS EVEN AND UNLABORED ON 3L NC. IV LINE INTACT. SAFETY PRECAUTIONS IN PLACE. BED LOCKED AND AT LOWEST LEVEL WITH 2 RAILS UP. CALL LIGHT WITHIN REACH.
--- NOTE | 2022-02-18 07:16 | NUR ---
telephoto engineer notes Received patient in bed, alert without active complaint. Telemetry showed SR with HR 60/min. He is on 3L oxygen via NC, no SOB noted. Call chavarria is placed within reach. Bed is locked and placed in lowest position. All safety measures are implemented. Will continue to monitor.
[2022-02-18 08:00] VITALS: BP 134/70
[2022-02-18] MEDS: HALOPERIDOL 5 MG TABLET PO SCH ×3 (08:03→16:34)
[2022-02-18] MEDS: AZITHROMYCIN 500 MG in IV D5W 250 ML IV SCH (11:09)
[2022-02-18] MEDS: ENOXAPARIN SODIUM 40 MG/0.4 ML DISP.SYRIN SQ SCH (11:11)
[2022-02-18 12:00] VITALS: BP 128/72
[2022-02-18] MEDS: CEFEPIME 2 GM in IV D5W 100 ML IV SCH (12:26)
--- NOTE | 2022-02-18 13:41 | NUR ---
RN notes Patient is resting in bed. Finished his lunch with good appetite. IV site running antibiotics, no redness observed.
[2022-02-18 16:00] VITALS: BP 140/76
[2022-02-18] MEDS: IV NS 0.9% 1,000 ML IV PRN (18:21)
--- NOTE | 2022-02-18 18:40 | NUR ---
RN notes Patient is calm and cooperative today. Right UA IV site is dry and intact. Telemetry showed SR HR 60-70/min. SpO2 95% RA. Call chavarria is placed within reach. Bed is locked and placed in lowest position. All safety measures are implemented. Will endorse PM nurse to continue monitoring and care.
--- NOTE | 2022-02-18 19:40 | NUR ---
QUALITY ASSURANCE ASSOCIATE OPENING NOTES RECEIVED PATIENT IN BED A/O X2, AGITATED; TRYING TO GET OUT OF THE BED, ON 02 VIA NC AT 2LPM SATING 96% NO SOB NO DISTRESS NOTED AT THIS TIME. WITH IV ACCESS AT LFA #22 INTACT, PATENT AND FLUSHES WELL. ON TELE MONITORING CURRENTLY READING SR AT 89, ALL SAFETY MEASURES IN PLACE. HOB ELEVATED. CALL LIGHT WITHIN REACH AND INSTRUCTED TO CALL FOR ASSISTANCE, BED ALARM ON, WILL CONTINUE TO MONITOR THROUGHOUT THE SHIFT.
[2022-02-18 20:00] VITALS: BP 149/83
[2022-02-19] VITALS: BP 158/87
[2022-02-19] MEDS: IPRATROPIUM NEB FS 0.5 MG/2.5 ML AMPUL.NEB NEB SCH ×3 (01:30→13:30)
[2022-02-19 04:00] VITALS: BP 175/81
--- NOTE | 2022-02-19 07:06 | NUR ---
MOLDED RUBBER GOODS CUTTER CLOSING NOTES PATIENT REMAINS IN BED A/O X2, WITH PERIODS OF CONFUSION, ON 02 VIA NC AT 2LPM SATING 96% NO SOB NO DISTRESS NOTED AT THIS TIME. WITH IV ACCESS AT LFA #22 INTACT, PATENT AND FLUSHES WELL RUNNING NS AT 75 ML/HR. ON TELE MONITORING CURRENTLY READING SR AT 89, ALL DUE MEDS GIVEN, KEPT DRY AND CLEAN, ALL SAFETY MEASURES IN PLACE. HOB ELEVATED. CALL LIGHT WITHIN REACH AND INSTRUCTED TO CALL FOR ASSISTANCE, BED ALARM ON, WILL ENDORSE TO AM SHIFT FOR CONTINUITY OF CARE.
--- NOTE | 2022-02-19 07:25 | NUR ---
INTEGRATION SPECIALIST OPENING NOTES RECEIVED PATIENT IN BED A/O X3 ON 02 VIA NC AT 2LPM SATING 96% NO SOB NO DISTRESS NOTED AT THIS TIME. WITH IV ACCESS AT LFA #22 INTACT, PATENT AND FLUSHES WELL. ON TELE MONITORING , ALL SAFETY MEASURES IN PLACE. HOB ELEVATED. CALL LIGHT WITHIN REACH AND INSTRUCTED TO CALL FOR ASSISTANCE, BED ALARM ON.
[2022-02-19 08:00] VITALS: BP 142/73
[2022-02-19] MEDS: HALOPERIDOL 5 MG TABLET PO SCH ×3 (08:03→17:33)
[2022-02-19 11:13] LABS: ABG BASE EXCESS 0.8 mmol/L; ABG OXYGEN SATURATION 92.7 % (92.0-98.5); ABG PCO2 43.2 mmHg (35.0-45.0); ABG PH 7.396 (7.350-7.450); ABG PO2 70.3 mmHg (75.0-100.0); AaDO2 78.4 mmHg; COHb 0.7 % (0.5-1.5); MetHb 0.3 % (0.0-1.5); O2Hb 91.8 % (94.0-97.0); SITE, ABG Right Radial; VENT MODE, BG 2L NC
[2022-02-19] MEDS: AZITHROMYCIN 500 MG in IV D5W 250 ML IV SCH (11:18)
[2022-02-19] MEDS: ENOXAPARIN SODIUM 40 MG/0.4 ML DISP.SYRIN SQ SCH (11:20)
[2022-02-19] MEDS ORDERED: AMOX-430 PO (11:24)
[2022-02-19 12:00] VITALS: BP 147/86
[2022-02-19] MEDS: CEFEPIME 2 GM in IV D5W 100 ML IV SCH ×3 (12:58)
[2022-02-19 16:00] VITALS: BP 140/74
[2022-02-19] MEDS: ACETAMINOPHEN 325 MG TABLET PO PRN (17:33)
--- NOTE | 2022-02-19 18:21 | NUR ---
RN NOTE PATIENT LEFT IN STABLE CONDITION, LEFT WIHT 2 EMT TO [facility]
== END 2022-02-19 19:06 | DRG 177 ==
LOC: TELE-TD 09:44 → TELE1 09:50
PROVIDERS: ADMIT Internal Medicine; ATTEND Internal Medicine
DX: J69.0 Pneumonitis due to inhalation of food and vomit (principal); J96.01 Acute respiratory failure with hypoxia; I50.32 Chronic diastolic (congestive) heart failure; D68.59 Other primary thrombophilia; R64 Cachexia; I48.0 Paroxysmal atrial fibrillation; I11.0 Hypertensive heart disease with heart failure; Z20.822 Contact with and (suspected) exposure to COVID-19; E78.5 Hyperlipidemia, unspecified; F20.9 Schizophrenia, unspecified; K21.9 Gastro-esophageal reflux disease without esophagitis; Z87.891 Personal history of nicotine dependence; Z79.84 Long term (current) use of oral hypoglycemic drugs; Z79.51 Long term (current) use of inhaled steroids; Z79.899 Other long term (current) drug therapy; E11.65 Type 2 diabetes mellitus with hyperglycemia; Y95 Nosocomial condition; Z79.01 Long term (current) use of anticoagulants
CPT/HCPCS: 36415; 36600; 71045-TC; 80053-TC; 82803-TC; 83735-TC; 84100-TC; 85025-TC; 92526; 92611-TC; 94799-TC; G0378; J0456; J0692; J1650; J2405; J3475; J7030; J7060; U0003